=== PATIENT | male | born 1990 | race Two or more races ===

== ENCOUNTER 2023-08-11 13:10 | Emergency (ER) | payer MEDICAID, OTHER ==
[~2023-08-11] VITALS: Ht 170.2 cm; Wt 99.0 kg
[2023-08-11] MEDS ORDERED: SODIUM CHLORIDE 0.9% 1,000 ML IV ONE (13:45)
[2023-08-11] MEDS ORDERED: LORazepam 2MG/ML-1ML VIAL IV ONE (13:45)
[2023-08-11 14:22] VITALS: TEMP 98.8
[2023-08-11 15:21] LABS: Eosinophils # (auto) 0 10 ^3/uL (0-0.8); Eosinophils % (auto) 0.1 % (0.0-7.0); Lymphocytes # (auto) 1.4 10 ^3/uL (0.4-5.4); Mean Corpuscular Hgb Conc. 34.3 g/dL (32.0-36.0); Mean Corpuscular Volume 91.4 fL (80.0-100.0); Monocytes % (auto) 5.5 % (0.0-12.0); Neutrophils # (auto) 15.7 10 ^3/uL (1.6-8.6); Neutrophils % (auto) 85.9 % (37.0-80.0)
[2023-08-11 15:23] LABS: Basophils # (auto) 0.2 10 ^3/uL (0-0.2); Basophils % (auto) 0.9 % (0.0-2.0); Hematocrit 52.9 % (41.0-53.0); Hemoglobin 18.1 g/dL (13.5-17.5); Lymphocytes % (auto) 7.6 % (10.0-50.0); Mean Corpuscular Hemoglobin 31.4 pg (28.0-32.0); Nucleated Red Blood Cells % 0.1 %; Red Blood Cells 5.78 10^6/uL (4.5-5.90); Red Cell Distribution Width 13.7 % (11.8-14.3); White Blood Cell 18.2 10^3/uL (4.4-10.8)
[2023-08-11 15:39] LABS: Alanine Aminotransferase 165 U/L (7-40); Alkaline Phosphatase 83 U/L (46-116); Anion Gap 13 (5-15); Aspartate Aminotransferase 89 U/L (13-40); BUN/Creatinine Ratio 4.9 (10.0-20.0); Blood Alcohol < 3.0 mg/dL (<10); Blood Urea Nitrogen 5 mg/dL (9-23); Calcium 9.7 mg/dL (8.5-10.1); Carbon Dioxide 23 mmol/L (20-30); Chloride 105 mmol/L (98-107); Glucose 117 mg/dL (74-106); Sodium 141 mmol/L (136-145)
[2023-08-11 15:40] LABS: Albumin 5.1 g/dL (3.2-4.8); Bilirubin, Total 2.3 mg/dL (0.2-1.0); Total Protein 8.3 g/dL (5.7-8.2)
[2023-08-11] MEDS ORDERED: ONDANSETRON HCL 4 MG/2 ML VIAL IV ONE (16:45)
[2023-08-11] MEDS ORDERED: CHL10C PO (16:57)
[2023-08-11] MEDS ORDERED: ZOFR4T PO (16:57)
[2023-08-11 17:18] VITALS: BP 137/89; PULSE 115; RESP 17; O2SAT 95
[2023-08-11 18:18] LABS: Amphetamine Screen, Urine Neg (NEGATIVE)
[2023-08-11 18:19] LABS: Barbiturate Scree,Urine Neg (NEGATIVE); Benzodiazephine Screen, Urine Neg (NEGATIVE); Cannabinoid Screen, Urine Pos (NEGATIVE); Cocaine Screen, Urine Neg (NEGATIVE); Opiate Scree,Urine Pos (NEGATIVE); Phencyclidine Screen, Urine Neg (NEGATIVE)
== END 2023-08-11 16:58 | disposition home or self-care (01) ==
LOC: ER 13:10 → EDBD 13:10 → ER 16:58
DX: F10.139 Alcohol abuse with withdrawal, unspecified (principal); D72.829 Elevated white blood cell count, unspecified; F12.10 Cannabis abuse, uncomplicated; Z88.6 Allergy status to analgesic agent; Z79.899 Other long term (current) drug therapy; Y90.8 Blood alcohol level of 240 mg/100 ml or more
CPT/HCPCS: 36415; 80053; 80307; 80320; 85025; 96361; 96374; 96375; 99284; J2060; J2405; J7030; 93005

== ENCOUNTER 2024-09-23 11:41 | Inpatient (IN) | payer MEDICAID ==
[~2024-09-23] VITALS: Ht 170.2 cm; Wt 90.2 kg
[~2024-09-23 11:41] MED LIST: CHL10C PO; ZOFR4T PO
--- NOTE | 2024-09-23 12:21 | ED.PDOC ---
History of Present Illness HPI Comments 34M presents to the ER w/ no prior Hx associated to the c/c of Hematuria/Hematemesis. Pt reports that he has been drinking alcohol for 12 years, mainly vodka and recently stopped on Saturday09/21/24. Pt notes that yesterday morning the symptoms came w/ Hematemesis, Hematuria, Cold shakes, ABD/Chest cramps. Pt notes that it is very uncomfortable to urinate due from the blood. Social Hx of being sober w/ alcohol, but denies tobacco use and substance use. Denies chills, fever, /D, SOB, CP or no other associated symptom's, modifiers, recent injuries or sick contact at this time. Time Seen by MD: 12:00 Primary Care Provider: unknown Reviewed Notes: Nurses Notes, Medications, Allergies Allergies: Coded Allergies: Aspirin (Verified Allergy, Mild, 08/11/23) Uncoded Allergies: PENICILLIN (Allergy, Mild, 08/11/23) Home Meds Active Scripts Ondansetron Odt 4MG Tab (ZOFRAN PO) 4 Mg Tb, 4 MG PO Q8HP PRN for 5 Days, #15 TAB ODT TAB-DISSOLVE IN MOUTH, THEN SWALLOW Prov:DAISHA BROWN MD 08/11/23 Chlordiazepoxide Hcl (Ni-1) (I (Librium) 10 Mg Cap, 10 MG PO BID for 7 Days, #14 CAP Prov:DAISHA BROWN MD 08/11/23 Information Source: Patient Mode of Arrival: Ambulatory Severity: Moderate Timing: Hours Duration: Since onset, Hours Prehospital treatment: None Past Medical History PAST MEDICAL HISTORY: Denies Surgical History: Denies all surgeries Family History Family History: Reviewed,noncontributory to illness, Unknown Social History Smoker: Non-Smoker Alcohol: Heavy, Sober (Sobert since saturday09/21/24) Drugs: Denies Drug Use Lives In: Home Constitutional: denies: chills, diaphoresis, fatigue, fever, malaise, sweats, weakness, others EENTM: denies: blurred vision, double vision, ear bleeding, ear discharge, ear drainage, ear pain, ear ringing, eye pain, eye redness, hearing loss, mouth pain, mouth swelling, nasal discharge, nose bleeding, nose congestion, nose pain, photophobia, tearing, throat pain, throat swelling, voice changes, others Respiratory: denies: cough, hemoptysis, orthopnea, SOB at rest, shortness of breath, SOB with excertion, stridor, wheezing, others Cardiovascular: denies: chest pain, dizzy spells, diaphoresis, Dyspnea on exertion, edema, irregular heart beat, left arm pain, lightheadedness, palpitations, PND, syncope, others Gastrointestinal: reports: abdominal pain; denies: abdomen distended, blood streaked bowels, constipated, diarrhea, dysphagia, difficulty swallowing, hematemesis, melena, nausea, poor appetite, poor fluid intake, rectal bleeding, rectal pain, vomiting, others Genitourinary: reports: hematuria, others (Hematemesis); denies: burning, dysuria, flank pain, frequency, incontinence, penile discharge, penile sore, pain, testicle pain, testicle swelling, urgency Neurological: denies: dizziness, fainting, headache, left sided numbness, left sided weakness, numbness, paresthesia, pre-existing deficit, right sided numbness, right sided weakness, seizure, speech problems, tingling, tremors, weakness, others Musculoskeletal: denies: back pain, gout, joint pain, joint swelling, muscle pain, muscle stiffness, neck pain, others Integumetry: denies: bruises, change in color, change in hair/nails, dryness, laceration, lesions, lumps, rash, wounds, others Allergic/Immunocompromised: denies: Difficulty Healing, Frequent Infections, Hives, Itching, others Hematologic/Lymphatic: denies: anemia, blood clots, easy bleeding, easy bruising, swollen glands, others Endocrine: denies: excessive hunger, excessive sweating, excessive thirst, excessive urination, flushing, intolerance to cold, intolerance to heat, unexplained weight gain, unexplained weight loss, others Psychiatric: denies: anxiety, bipolar disorder, depression, hopeless, panic disorder, schizophrenia, sleepless, suicidal, others All Other Systems: Reviewed and Negative Physical Exam General Appearance: Moderate Distress, Normal HEENT: Normal ENT Inspection, Pharynx Normal, Scleral Icterus (L), Scleral Icterus (R), TMs Normal Neck: Full Range of Motion, Non-Tender, Normal, Normal Inspection Respiratory: Chest Non-Tender, Lungs Clear, No Accessory Muscle Use, No Respiratory Distress, Normal Breath Sounds Cardiovascular: No Edema, No JVD, No Murmur, No Gallop, Normal Peripheral Pulses, Regular Rate/Rhythm Breast Exam: Deferred Gastrointestinal: No Organomegaly, Non Tender, No Pulsatile Mass, Normal Bowel Sounds, Soft Genitalia: Deferred Pelvic: Deferred Rectal: Deferred Extremities: No calf tenderness, Normal capillary refill, Normal inspection, Normal range of motion, Non-tender, No pedal edema Musculoskeletal : Apperance: Normal Neurologic: Alert, chair spring assembler II-XII nml as Tested, No Motor Deficits, Normal Affect, Normal Mood, No Sensory Deficits Cerebellar Function: NOT DONE Reflexes: NOT DONE Skin: Dry, Normal Color, Warm Peripheral Pulses: 3+ Radial (R), 3+ Radial (L) Lymphatic: No Adenopathy Was a procedure done? Was a procedure done?: No Differential Dx Considerations may include: Anemia Electrolyte imbalance X-Ray, Labs, Meds, VS Anemia Electrolyte imbalance Time of 1ST Reevaluation: 12:30 Reevaluation 1ST: Unchanged Patient Education/Counseling: Diagnosis, Treatment, Prognosis Family Education/Counseling: No Family Present Departure 1 Departure Time of Disposition: 12:41 Impression: Primary Impression: Alcohol abuse Additional Impression: Liver disease Disposition: ADMITTED INPATIENT Admit to: Med Surg Condition: Guarded Critical Care Note Critical Care Time?: No Stability Stability form required: No Heart Score Heart Score: Heart Score Response (Comments) Value History N/A 0 EKG N/A 0 Age N/A 0 Risk Factors N/A 0 Troponin N/A 0 Total 0 I personally scribed for GRACE ONEILL MD ([email or web address]) on 09/23/24 at 12:21. Electronically submitted by Josué Mckenzie ([email or web address]). GRACE ONEILL MD Sep 23, 2024 12:21
[2024-09-23 13:30] LABS: Urine Bacteria None Seen /hpf (None Seen)
[2024-09-23 13:51] LABS: Urine Blood 1+ /uL (Negative); Urine Clarity Clear (Clear); Urine Color Dark-Orange (Yellow); Urine Mucus FEW (None Seen); Urine Protein, UAD 3+ (Negative); Urine Specific Gravity 1.037 (1.001-1.035); Urine Squamous Epithelial Cell FEW /hpf (<5); Urine Urobilinogen 12 mg/dL (Negative); Urine WBC 2 /HPF (0-3); Urine pH 6.5 (5.0-9.0)
[2024-09-23] MEDS: SODIUM CHLORIDE 0.9% 1,000 ML IV ONE ×2 (14:13→15:15)
[2024-09-23] MEDS: THIAMINE 100mg/ml INJ (200mg/2ml VIAL) IV ONE (14:16)
--- NOTE | 2024-09-23 14:17 | DVH ---
CT ABDOMEN AND PELVIS WITHOUT CONTRAST CLINICAL HISTORY: diffusepain TECHNIQUE: Multiple contiguous axial images of the abdomen and pelvis without intravenous contrast. T he images were reformatted degenerate coronal and sagittal reconstructions. All CT scans at this medical facility are performed using dose modulation techniques as appropriate t o a performed exam including the following:Automated exposure control was utilized; adjustment of the MA and/or KV according to patient size; and use of iterative reconstruction technique. Radiation Dose Information: CT Dose: CTDI volume is 16 mGy. Dose-length product is 996 mGy*cm Comparison: None FINDINGS: Evaluation of the abdomen and pelvis is limited without intravenous contrast. Liver is prominent in size with diffuse hepatic steatosis. The gallbladder, pancreas, kidneys, adr enal glands, and spleen appear within normal limits. There is no gross evidence of abdominal lymphadenopathy. There is no free fluid or free air. The stomach grossly appears unremarkable. The small and large bowel loops demonstrate normal caliber . There are scattered diverticula in the distal colon without evidence of acute diverticulitis. Norm al-appearing appendix is seen in the right lower quadrant abdomen. The abdominal aorta and IVC appear within normal limits. Bladder is decompressed limiting evaluation. Pelvic organ appears within normal limits. There is no gross evidence of a pelvic mass. There is no free fluid collection. There is a small fat containing l eft inguinal hernia. Lung bases are clear. There is no acute osseous abnormality. IMPRESSION: 1. There is no acute process in the abdomen and pelvis. 2. Hepatomegaly with diffuse hepatic steatosis. HS:Y
[2024-09-23] MEDS: LORazepam 2MG/ML-1ML VIAL IV ONE (15:38)
[2024-09-23 19:10] LABS: Basophils # (auto) 0.1 10 ^3/uL (0-0.2); Basophils % (auto) 0.9 % (0.0-2.0); Eosinophils # (auto) 0 10 ^3/uL (0-0.8); Eosinophils % (auto) 0.1 % (0.0-7.0); Hematocrit 49.3 % (41.0-53.0); Hemoglobin 16.7 g/dL (13.5-17.5); Lymphocytes % (auto) 17.7 % (10.0-50.0); Mean Corpuscular Hemoglobin 32.3 pg (28.0-32.0); Mean Corpuscular Hgb Conc. 33.8 g/dL (32.0-36.0); Mean Corpuscular Volume 95.4 fL (80.0-100.0); Monocytes # (auto) 0.9 10 ^3/uL (0-1.3); Neutrophils # (auto) 8.4 10 ^3/uL (1.6-8.6); Neutrophils % (auto) 73.3 % (37.0-80.0); Nucleated Red Blood Cells % 0.1 %; Platelet Count (auto) 189 10^3/uL (140-450); Red Blood Cells 5.16 10^6/uL (4.5-5.90); Red Cell Distribution Width 14.4 % (11.8-14.3); White Blood Cell 11.4 10^3/uL (4.4-10.8)
[2024-09-23 19:23] LABS: Alkaline Phosphatase 92 U/L (46-116); Anion Gap 16 (5-15); BUN/Creatinine Ratio 10.9 (10.0-20.0); Blood Urea Nitrogen 11 mg/dL (9-23); Calcium 9.9 mg/dL (8.7-10.4); Carbon Dioxide 25 mmol/L (20-31); Glucose 80 mg/dL (74-106); Potassium 3.7 mmol/L (3.5-5.1); Sodium 138 mmol/L (136-145)
[2024-09-23 19:27] LABS: Alanine Aminotransferase 127 U/L (7-40); Albumin 5.2 g/dL (3.2-4.8); Aspartate Aminotransferase 132 U/L (13-40); Bilirubin, Total 7.2 mg/dL (0.2-1.0); Chloride 97 mmol/L (98-107); Total Protein 8.4 g/dL (5.7-8.2)
[2024-09-23 19:34] LABS: INR 1.34 (0.9-1.15); Partial Thromboplastin Time 28.4 SEC (24.5-34.5); Prothrombin Time 13.8 sec (9.3-11.8)
[2024-09-23 21:00] VITALS: BP 127/91; PULSE 94; RESP 18; TEMP 99.5; O2SAT 96
[2024-09-23] MEDS: PANTOPRAZOLE 40 MG/10 ML VIAL INJ IV ONE (21:45)
[2024-09-23] MEDS: chlordiazePOXIDE HCL 25 MG CAP PO SCH (21:45)
--- NOTE | 2024-09-23 21:47 | DVHHP2 ---
History of Present Illness Reason for Visit: Nausea and vomiting History of Present Illness 34-year-old male with a history of liver cirrhosis presents with a chief complaint of nausea and vomiting. Patient reports stopping alcoholic drinks three days ago. He states for the past two days having nausea and vomiting. He reports also noticing blood-tinged emesis. Denies melena. Reports palpitations and chest pain occasionally. Other acute complaints reported. Past Medical History Liver cirrhosis Past Surgical History Denies Family History Noncontributory Smoke: No ALCOHOL: none Drugs: None Lives: with Family Review of Systems Review of Systems Review of systems are currently negative otherwise addressed in HPI. Allergies: Coded Allergies: Aspirin (Verified Allergy, Mild, 08/11/23) Uncoded Allergies: PENICILLIN (Allergy, Mild, 08/11/23) Medications Current Medications Medications Dose Ordered Sig/Naveen Route Start Time Stop Time Status Last Admin Dose Admin Pantoprazole Sodium 40 mg DAILY IV 09/24/24 10:00 Chlordiazepoxide HCl 50 mg Q8H PO 09/23/24 20:45 09/24/24 12:46 Chlordiazepoxide HCl 50 mg Q12HR PO 09/24/24 10:00 09/24/24 22:01 Chlordiazepoxide HCl 25 mg Q12HR PO 09/25/24 10:00 09/25/24 22:01 Chlordiazepoxide HCl 25 mg QAM PO 09/26/24 07:00 09/26/24 07:01 Folic Acid 1 mg/ Magnesium Sulfate 8 meq/ Multivitamins 10 ml/Thiamine HCl 100 mg/Sodium Chloride 1,013.2 ml @ 126.247 mls/hr DAILY@1800 INJ 09/24/24 18:00 Temazepam 15 mg QHSP PRN PO 09/23/24 20:45 Ondansetron HCl 4 mg Q4HP PRN IV 09/23/24 20:45 Propranolol HCl 20 mg BID PO 09/23/24 22:00 Exam Vital Signs Vital Signs Date Time Temp Pulse Resp B/P (MAP) Pulse Ox O2 Delivery O2 Flow Rate FiO2 09/23/24 14:22 97.1 106 15 153/77 (102) 95 97.1 Exam Gen: 34-year-old male in mild distress Skin: Warm, dry, normal color and texture, no rash. HEENT: Normocephalic atraumatic, mucous membranes moist and pink, scleral icterus. Neck: Cervical and supraclavicular nodes normal without enlargement, trachea is midline, thyroid gland is normal without masses. Pulmonary: Clear to auscultation and percussion bilaterally. Cardiac: Regular rate and rhythm. No murmur Abdomen: Soft, nontender, nondistended, bowel sounds present all 4 quadrants, no guarding, no rigidity, no organomegaly. Extremities: No cyanosis, clubbing, no edema Neuro: Cranial nerves II through XII grossly intact, normal affect and speech, no focal motor deficits. Labs/Xrays ORDERING PHYSICIAN: GRACE ONEILL MD PROCEDURE(s): ABPL - CT AB PEL WO CON-NO ORAL OR IV REASON: diffusepain ORDER NUMBER(s): [id number], ACCESSION NUMBER(s): [id number] CT ABDOMEN AND PELVIS WITHOUT CONTRAST CLINICAL HISTORY: diffusepain TECHNIQUE: Multiple contiguous axial images of the abdomen and pelvis without intravenous contrast. The images were reformatted degenerate coronal and sagittal reconstructions. All CT scans at this medical facility are performed using dose modulation techniques as appropriate to a performed exam including the following:Automated exposure control was utilized; adjustment of the MA and/or KV according to patient size; and use of iterative reconstruction technique. Radiation Dose Information: CT Dose: CTDI volume is 16 mGy. Dose-length product is 996 mGy*cm Comparison: None FINDINGS: Evaluation of the abdomen and pelvis is limited without intravenous contrast. Liver is prominent in size with diffuse hepatic steatosis. The gallbladder, pancreas, kidneys, adrenal glands, and spleen appear within normal limits. There is no gross evidence of abdominal lymphadenopathy. There is no free fluid or free air. The stomach grossly appears unremarkable. The small and large bowel loops demonstrate normal caliber. There are scattered diverticula in the distal colon without evidence of acute diverticulitis. Normal-appearing appendix is seen in the right lower quadrant abdomen. The abdominal aorta and IVC appear within normal limits. Bladder is decompressed limiting evaluation. Pelvic organ appears within normal limits. There is no gross evidence of a pelvic mass. There is no free fluid collection. There is a small fat containing left inguinal hernia. Lung bases are clear. There is no acute osseous abnormality. IMPRESSION: 1. There is no acute process in the abdomen and pelvis. 2. Hepatomegaly with diffuse hepatic steatosis. HS:Y Labs Test 09/23/24 21:03 09/23/24 18:55 09/23/24 13:00 Range/Units White Blood Count 11.4 H 4.4-10.8 10^3/uL Red Blood Count 5.16 4.5-5.90 10^6/uL Hemoglobin 16.7 13.5-17.5 g/dL Hematocrit 49.3 41.0-53.0 % Mean Corpuscular Volume 95.4 80.0-100.0 fL Mean Corpuscular Hemoglobin 32.3 H 28.0-32.0 pg Mean Corpuscular Hemoglobin Concent 33.8 32.0-36.0 g/dL Red Cell Distribution Width 14.4 H 11.8-14.3 % Platelet Count 189 140-450 10^3/uL Mean Platelet Volume 8.1 6.9-10.8 fL Neutrophils (%) (Auto) 73.3 37.0-80.0 % Lymphocytes (%) (Auto) 17.7 10.0-50.0 % Monocytes (%) (Auto) 8.0 0.0-12.0 % Eosinophils (%) (Auto) 0.1 0.0-7.0 % Basophils (%) (Auto) 0.9 0.0-2.0 % Neutrophils # (Auto) 8.4 1.6-8.6 10 ^3/uL Lymphocytes # (Auto) 2.0 0.4-5.4 10 ^3/uL Monocytes # (Auto) 0.9 0-1.3 10 ^3/uL Eosinophils # (Auto) 0 0-0.8 10 ^3/uL Basophils # (Auto) 0.1 0-0.2 10 ^3/uL Nucleated Red Blood Cells 0.1 % Prothrombin Time 13.8 H 9.3-11.8 sec Prothrombin Time INR 1.34 H 0.9-1.15 Activated Partial Thromboplast Time 28.4 24.5-34.5 SEC Sodium Level 138 136-145 mmol/L Potassium Level 3.7 3.5-5.1 mmol/L Chloride Level 97 L 98-107 mmol/L Carbon Dioxide Level 25 20-31 mmol/L Anion Gap 16 H 5-15 Blood Urea Nitrogen 11 9-23 mg/dL Creatinine 1.01 0.700-1.30 mg/dL Glomerular Filtration Rate Calc 101 >90 mL/min BUN/Creatinine Ratio 10.9 10.0-20.0 Serum Glucose 80 74-106 mg/dL Calcium Level 9.9 8.7-10.4 mg/dL Total Bilirubin 7.2 H 0.2-1.0 mg/dL Aspartate Amino Transferase (AST) 132 H 13-40 U/L Alanine Aminotransferase (ALT) 127 H 7-40 U/L Alkaline Phosphatase 92 46-116 U/L Total Protein 8.4 H 5.7-8.2 g/dL Albumin 5.2 H 3.2-4.8 g/dL Urine Color Dark-orange Yellow Urine Clarity Clear Clear Urine pH 6.5 5.0-9.0 Urine Specific [place] 1.037 H 1.001-1.035 Urine Protein 3+ H Negative Urine Ketones 4+ H Negative Urine Blood 1+ H Negative /uL Urine Nitrite Negative Negative Urine Bilirubin 2+ Negative Urine Urobilinogen 12 H Negative mg/dL Urine Leukocyte Esterase Negative Negative /uL Urine RBC 5 0 - 3 /hpf Urine Microscopic WBC 2 0-3 /HPF Urine Squamous Epithelial Cells Few <5 /hpf Urine Bacteria None seen None Seen /hpf Urine Mucus Few None Seen Urine Glucose Trace Normal mg/dL Lipase 71 H 12-53 U/L Plasma/Serum Blood Alcohol < 3.0 <10 mg/dL Assessment/Plan Assessment/Plan Assessment Alcohol withdrawal Liver cirrhosis Transaminitis Coagulopathy ? GI bleed Plan Admit the patient to [facility] to the hospitalist GI consult Librium taper Clear liquid diet Continue treatment per orders. Plan discussed with: Patient My Orders Orders - DANIKA BOUCHER AGACNP Procedure Category Date Status Time Admit ADMIT 09/23/24 Transmitted 18:48 Ammonia LAB 09/23/24 In Process 20:37 Pantoprazole PHA 09/24/24 In Process (Protonix) 10:00 Chlordiazepoxide Hcl PHA 09/23/24 In Process Capsule (Librium Ca 20:45 Chlordiazepoxide Hcl PHA 09/24/24 In Process Capsule (Librium Ca 10:00 Chlordiazepoxide Hcl PHA 09/25/24 In Process Capsule (Librium Ca 10:00 Chlordiazepoxide Hcl PHA 09/26/24 In Process Capsule (Librium Ca 07:00 Folic Acid... PHA 09/24/24 In Process 18:00 Stool Occult Blood LAB 09/23/24 Logged 20:37 Gastric Occult Blood LAB 09/23/24 Logged 20:37 Temazepam (Restoril) PHA 09/23/24 In Process 20:45 Ondansetron Hcl PHA 09/23/24 In Process (Zofran) 20:45 Complete Blood Count LAB 09/24/24 Verified 04:00 Comprehensive LAB 09/24/24 Verified Metabolic Panel 04:00 Condition: Stable LATA 09/23/24 In Process 20:37 Clear Liq Diet DIET 09/24/24 Transmitted Breakfast Bedrest With Bathroom LATA 09/23/24 In Process Privileg 20:37 Type And Screen BBK 09/23/24 In Process 20:37 * [facility] Guest Service Agent CONS 09/23/24 Transmitted 20:47 Propranolol Hcl PHA 09/23/24 In Process Tablet (Inderal 22:00 Date of Service: Sep 23, 2024 Billing Provider: DANIKA BOUCHER Common Visit Codes: [id number] INP/OBS CARE (HIGH) DANIKA BOUCHER Sep 23, 2024 21:47
[2024-09-23] MEDS: ONDANSETRON HCL 4 MG/2 ML VIAL IV PRN (21:50)
[2024-09-23] MEDS: PROPRANOLOL HCL 20 MG TAB PO SCH (22:47)
[2024-09-23] MEDS: TEMAZEPAM 15 MG CAP PO PRN (23:10)
[2024-09-24] VITALS (8 sets, daily range): BP systolic 112–130; BP diastolic 83–95; PULSE 75–85; RESP 16–20; TEMP 97.8–98.8; O2SAT 96–98
[2024-09-24 05:23] LABS: Basophils # (auto) 0.1 10 ^3/uL (0-0.2); Basophils % (auto) 0.6 % (0.0-2.0); Eosinophils # (auto) 0.1 10 ^3/uL (0-0.8); Eosinophils % (auto) 0.9 % (0.0-7.0); Hematocrit 47.5 % (41.0-53.0); Hemoglobin 15.9 g/dL (13.5-17.5); Lymphocytes % (auto) 24.1 % (10.0-50.0); Mean Corpuscular Hgb Conc. 33.5 g/dL (32.0-36.0); Mean Corpuscular Volume 95.6 fL (80.0-100.0); Monocytes # (auto) 0.6 10 ^3/uL (0-1.3); Monocytes % (auto) 7.5 % (0.0-12.0); Neutrophils # (auto) 5.5 10 ^3/uL (1.6-8.6); Neutrophils % (auto) 66.9 % (37.0-80.0); Platelet Count (auto) 151 10^3/uL (140-450); Red Blood Cells 4.96 10^6/uL (4.5-5.90); Red Cell Distribution Width 14.1 % (11.8-14.3); White Blood Cell 8.3 10^3/uL (4.4-10.8)
[2024-09-24 05:42] LABS: Albumin 4.7 g/dL (3.2-4.8); Alkaline Phosphatase 80 U/L (46-116); Anion Gap 13 (5-15); BUN/Creatinine Ratio 9.7 (10.0-20.0); Calcium 9.7 mg/dL (8.7-10.4); Carbon Dioxide 26 mmol/L (20-31); Chloride 98 mmol/L (98-107); Glucose 79 mg/dL (74-106); Sodium 137 mmol/L (136-145); Total Protein 7.7 g/dL (5.7-8.2)
[2024-09-24 05:44] LABS: Alanine Aminotransferase 105 U/L (7-40); Aspartate Aminotransferase 116 U/L (13-40); Blood Urea Nitrogen 9 mg/dL (9-23); Potassium 3.4 mmol/L (3.5-5.1)
[2024-09-24] MEDS: chlordiazePOXIDE HCL 25 MG CAP PO SCH (08:31)
[2024-09-24] MEDS: PANTOPRAZOLE 40 MG/10 ML VIAL INJ IV SCH (08:31)
--- NOTE | 2024-09-24 12:25 | DVHPN2 ---
Reviewed: Care Plan, H&P, Labs, Medications, Previous Orders, Radiology Changes from previous H/P or p: No Changes Objective Vitals Vital Signs Date Time Temp Pulse Resp B/P (MAP) Pulse Ox O2 Delivery O2 Flow Rate FiO2 09/24/24 09:00 98.2 84 16 127/90 (102) 96 98.2 09/24/24 08:00 Room Air* 0 21 Intake/Output Intake and Output 09/24/24 07:00 Intake Total 800 ml Output Total 500 ml Balance 300 ml Intake Oral 800 ml Output Urine Total 500 ml Medications Current Medications Medications Dose Ordered Sig/Naveen Route Start Time Stop Time Status Last Admin Dose Admin Pantoprazole Sodium 40 mg DAILY IV 09/24/24 10:00 09/24/24 08:31 40 MG Chlordiazepoxide HCl 50 mg Q8H PO 09/23/24 20:45 09/24/24 12:46 09/24/24 04:56 50 MG Chlordiazepoxide HCl 50 mg Q12HR PO 09/24/24 10:00 09/24/24 22:01 09/24/24 08:31 50 MG Chlordiazepoxide HCl 25 mg Q12HR PO 09/25/24 10:00 09/25/24 22:01 Chlordiazepoxide HCl 25 mg QAM PO 09/26/24 07:00 09/26/24 07:01 Folic Acid 1 mg/ Magnesium Sulfate 8 meq/ Multivitamins 10 ml/Thiamine HCl 100 mg/Sodium Chloride 1,013.2 ml @ 126.247 mls/hr DAILY@1800 INJ 09/24/24 18:00 Temazepam 15 mg QHSP PRN PO 09/23/24 20:45 09/23/24 23:10 15 MG Ondansetron HCl 4 mg Q4HP PRN IV 09/23/24 20:45 09/24/24 04:43 4 MG Propranolol HCl 20 mg BID PO 09/23/24 22:00 09/24/24 08:56 20 MG Laboratory Results Laboratory Tests 09/24/24 04:44 Chemistry Test 09/23/24 18:55 09/24/24 04:44 Albumin 5.2 g/dL (3.2-4.8) H 4.7 g/dL (3.2-4.8) Calcium Level 9.9 mg/dL (8.7-10.4) 9.7 mg/dL (8.7-10.4) Total Protein 8.4 g/dL (5.7-8.2) H 7.7 g/dL (5.7-8.2) Coagulation Test 09/23/24 18:55 Prothrombin Time 13.8 sec (9.3-11.8) H Prothrombin Time INR 1.34 (0.9-1.15) H Activated Partial Thromboplast Time 28.4 SEC (24.5-34.5) Lipid panel Test 09/23/24 13:00 Lipase 71 U/L (12-53) H LFT Test 09/23/24 18:55 09/24/24 04:44 Alanine Aminotransferase (ALT) 127 U/L (7-40) H 105 U/L (7-40) H Alkaline Phosphatase 92 U/L (46-116) 80 U/L (46-116) Aspartate Amino Transferase (AST) 132 U/L (13-40) H 116 U/L (13-40) H Total Bilirubin 7.2 mg/dL (0.2-1.0) H 7.0 mg/dL (0.2-1.0) H Urinalysis Test 09/23/24 13:00 Urine Color Dark-orange (Yellow) Urine Clarity Clear (Clear) Urine pH 6.5 (5.0-9.0) Urine Specific [place] 1.037 (1.001-1.035) Urine Protein 3+ (Negative) H Urine Ketones 4+ (Negative) H Urine Blood 1+ /uL (Negative) H Urine Nitrite Negative (Negative) Urine Bilirubin 2+ (Negative) Urine Urobilinogen 12 mg/dL (Negative) H Urine Leukocyte Esterase Negative /uL (Negative) Urine RBC 5 /hpf (0 - 3) Urine Microscopic WBC 2 /HPF (0-3) Urine Squamous Epithelial Cells Few /hpf (<5) Urine Bacteria None seen /hpf (None Seen) Urine Mucus Few (None Seen) Urine Glucose Trace mg/dL (Normal) Labs and/or images reviewed: Labs reviewed by me, Image(s) reviewed by me Assessment/Plan Assessment/Plan Acute abdominal pain with nausea and vomiting Acute pancreatitis lipase 71 Cirrhosis of liver Chronic current alcohol abuse and withdrawal: Banana bag Librium Acute dehydration: IV fluids Stool for occult blood positive Patient is thinking of leaving AMA Plan discussed with: Patient Date of Service: Sep 24, 2024 Billing Provider: DARSHAN PAIZ MD Common Visit Codes: [id number] INP/OBS CARE(HIGH) DARSHAN PAIZ MD Sep 24, 2024 12:25
[2024-09-24] MEDS: POTASSIUM CHL 20 Meq TABLET PO ONE (12:45)
[2024-09-24] MEDS: SODIUM CHLORIDE 0.9% 1,000 ML IV SCH (12:46)
--- NOTE | 2024-09-24 13:11 | DVHINCON2 ---
GI Consult Consult Note GI consult note Date of Consultation: 09/24/2024 Chief Complaint: GI bleed Referring Physician: Marito GROSS H&P: 34-year-old presented to ER with complains of nausea and vomiting. Patient admits to having blood-tinged emesis Patient also admits to black stool. No red blood in stool Patient admits to heavy alcohol use, but she has stopped three days ago No EGD in past. No blood thinners Past Medical History: Liver Past Surgical History: Denies Social History: NO smoking, heavy drinking ETOH Family History: Noncontributory Review of Systems: Constitutional: no fever, chill, weight loss HEENT: no eye pain, no hearing loss, no oral lesion, no scleral icterus Heart: no chest pain, no chest pressure Lung: no cough, no dyspnea with exertion Abdomen: see HPI Physical exam: General: NAD, AAOX3 Chest: lung cota clear to auscultation Heart: RRR, no murmur Abdomen: non-distended, no tenderness to palpation, +BS Labs: Labs Test 09/24/24 09:10 09/24/24 04:44 09/23/24 21:03 09/23/24 18:55 Range/Units Stool Occult Blood Positive Negative Stool Occult Blood Sample #3 Negative White Blood Count 8.3 # 4.4-10.8 10^3/uL Red Blood Count 4.96 4.5-5.90 10^6/uL Hemoglobin 15.9 13.5-17.5 g/dL Hematocrit 47.5 41.0-53.0 % Mean Corpuscular Volume 95.6 80.0-100.0 fL Mean Corpuscular Hemoglobin 32.0 28.0-32.0 pg Mean Corpuscular Hemoglobin Concent 33.5 32.0-36.0 g/dL Red Cell Distribution Width 14.1 11.8-14.3 % Platelet Count 151 140-450 10^3/uL Mean Platelet Volume 8.4 6.9-10.8 fL Neutrophils (%) (Auto) 66.9 37.0-80.0 % Lymphocytes (%) (Auto) 24.1 10.0-50.0 % Monocytes (%) (Auto) 7.5 0.0-12.0 % Eosinophils (%) (Auto) 0.9 0.0-7.0 % Basophils (%) (Auto) 0.6 0.0-2.0 % Neutrophils # (Auto) 5.5 1.6-8.6 10 ^3/uL Lymphocytes # (Auto) 2.0 0.4-5.4 10 ^3/uL Monocytes # (Auto) 0.6 0-1.3 10 ^3/uL Eosinophils # (Auto) 0.1 0-0.8 10 ^3/uL Basophils # (Auto) 0.1 0-0.2 10 ^3/uL Nucleated Red Blood Cells 0.0 % Sodium Level 137 136-145 mmol/L Potassium Level 3.4 L 3.5-5.1 mmol/L Chloride Level 98 98-107 mmol/L Carbon Dioxide Level 26 20-31 mmol/L Anion Gap 13 5-15 Blood Urea Nitrogen 9 9-23 mg/dL Creatinine 0.93 0.700-1.30 mg/dL Glomerular Filtration Rate Calc 111 >90 mL/min BUN/Creatinine Ratio 9.7 L 10.0-20.0 Serum Glucose 79 74-106 mg/dL Calcium Level 9.7 8.7-10.4 mg/dL Total Bilirubin 7.0 H 0.2-1.0 mg/dL Aspartate Amino Transferase (AST) 116 H 13-40 U/L Alanine Aminotransferase (ALT) 105 H 7-40 U/L Alkaline Phosphatase 80 46-116 U/L Total Protein 7.7 5.7-8.2 g/dL Albumin 4.7 3.2-4.8 g/dL Ammonia 22 11-32 umol/L Prothrombin Time 13.8 H 9.3-11.8 sec Prothrombin Time INR 1.34 H 0.9-1.15 Activated Partial Thromboplast Time 28.4 24.5-34.5 SEC Test 09/23/24 13:00 Range/Units Urine Color Dark-orange Yellow Urine Clarity Clear Clear Urine pH 6.5 5.0-9.0 Urine Specific [place] 1.037 H 1.001-1.035 Urine Protein 3+ H Negative Urine Ketones 4+ H Negative Urine Blood 1+ H Negative /uL Urine Nitrite Negative Negative Urine Bilirubin 2+ Negative Urine Urobilinogen 12 H Negative mg/dL Urine Leukocyte Esterase Negative Negative /uL Urine RBC 5 0 - 3 /hpf Urine Microscopic WBC 2 0-3 /HPF Urine Squamous Epithelial Cells Few <5 /hpf Urine Bacteria None seen None Seen /hpf Urine Mucus Few None Seen Urine Glucose Trace Normal mg/dL Lipase 71 H 12-53 U/L Plasma/Serum Blood Alcohol < 3.0 <10 mg/dL Imaging: CT abdomen pelvis IMPRESSION: 1. There is no acute process in the abdomen and pelvis. 2. Hepatomegaly with diffuse hepatic steatosis. Assessment: GI bleed Pancreatitis Hepatomegaly Heavy alcohol use Plan: Discussed with Dr. Long - Pt will be scheduled for an EGD tomorrow 09/25/2024. Pt was informed of the risks (bleeding, infection, perforation, reaction to sedation medications and cardiopulmonary arrest) and benefit and is agreeable to undergo the procedures. Protonix and Zofran Monitor lab DC alcohol discussed extensively Plan discussed with patient, RN and hospitalist Thank you for this consult Date of Service: Sep 24, 2024 Billing Provider: FAZAL PAIZ Common Visit Codes: CONSULT ONLY Consultation Codes: [id number] CONSULT <60MIN FAZAL PAIZ Sep 24, 2024 13:11
--- NOTE | 2024-09-24 13:12 | DVH ---
CHEST RADIOGRAPH Indication: Pain Technique: Single frontal view of the chest was obtained COMPARISON: None FINDINGS: Lines and Tubes: None Lungs: Clear Pleura: No effusion. No pneumothorax. Cardiomediastinal contours: Unremarkable Bones: Unremarkable IMPRESSION: No acute disease.
[2024-09-24] MEDS: FOLIC ACID 1 MG, MAGNESIUM SULF SDV 50% 8 MEQ, MULTIPLE VITAMIN 10 ML, THIAMINE INJ 100... INJ SCH (17:42)
[2024-09-25] VITALS (8 sets, daily range): BP systolic 95–126; BP diastolic 61–91; PULSE 74–94; RESP 15–18; TEMP 97.7–98.6; O2SAT 95–98
[2024-09-25 05:15] LABS: INR 1.33 (0.9-1.15); Partial Thromboplastin Time 27.6 SEC (24.5-34.5); Prothrombin Time 13.7 sec (9.3-11.8)
[2024-09-25] MEDS: chlordiazePOXIDE HCL 25 MG CAP PO SCH (09:25)
--- NOTE | 2024-09-25 11:02 | DVHPN2 ---
Reviewed: Care Plan, H&P, Labs, Medications, Previous Orders, Radiology Changes from previous H/P or p: No Changes Objective Vitals Vital Signs Date Time Temp Pulse Resp B/P (MAP) Pulse Ox O2 Delivery O2 Flow Rate FiO2 09/25/24 09:26 80 117/91 09/25/24 08:46 97.7 18 95 97.7 09/25/24 08:16 Room Air* 0 21 Intake/Output Intake and Output 09/25/24 07:00 Intake Total 2096.247 ml Output Total 0 ml Balance 2096.247 ml Intake Oral 1520 ml IV Total 576.247 ml Stool Total 0 ml # Voids 10 # Bowel Movements 1 Medications Current Medications Medications Dose Ordered Sig/Naveen Route Start Time Stop Time Status Last Admin Dose Admin Pantoprazole Sodium 40 mg DAILY IV 09/24/24 10:00 09/25/24 09:25 40 MG Chlordiazepoxide HCl 25 mg Q12HR PO 09/25/24 10:00 09/25/24 22:01 09/25/24 09:25 25 MG Chlordiazepoxide HCl 25 mg QAM PO 09/26/24 07:00 09/26/24 07:01 Folic Acid 1 mg/ Magnesium Sulfate 8 meq/ Multivitamins 10 ml/Thiamine HCl 100 mg/Sodium Chloride 1,013.2 ml @ 126.247 mls/hr DAILY@1800 INJ 09/24/24 18:00 09/24/24 17:42 126.247 MLS/HR Temazepam 15 mg QHSP PRN PO 09/23/24 20:45 09/24/24 21:14 15 MG Ondansetron HCl 4 mg Q4HP PRN IV 09/23/24 20:45 09/24/24 04:43 4 MG Propranolol HCl 20 mg BID PO 09/23/24 22:00 09/25/24 09:26 20 MG Sodium Chloride 1,000 ml @ 150 mls/hr Q6H40M IV 09/24/24 12:45 09/25/24 09:03 150 MLS/HR Laboratory Results Laboratory Tests 09/24/24 04:44 Coagulation Test 09/25/24 04:36 Prothrombin Time 13.7 sec (9.3-11.8) H Prothrombin Time INR 1.33 (0.9-1.15) H Activated Partial Thromboplast Time 27.6 SEC (24.5-34.5) Lipid panel Test 09/25/24 04:36 Lipase 94 U/L (12-53) H Urinalysis Test 09/23/24 13:00 Urine Color Dark-orange (Yellow) Urine Clarity Clear (Clear) Urine pH 6.5 (5.0-9.0) Urine Specific [place] 1.037 (1.001-1.035) Urine Protein 3+ (Negative) H Urine Ketones 4+ (Negative) H Urine Blood 1+ /uL (Negative) H Urine Nitrite Negative (Negative) Urine Bilirubin 2+ (Negative) Urine Urobilinogen 12 mg/dL (Negative) H Urine Leukocyte Esterase Negative /uL (Negative) Urine RBC 5 /hpf (0 - 3) Urine Microscopic WBC 2 /HPF (0-3) Urine Squamous Epithelial Cells Few /hpf (<5) Urine Bacteria None seen /hpf (None Seen) Urine Mucus Few (None Seen) Urine Glucose Trace mg/dL (Normal) Labs and/or images reviewed: Labs reviewed by me, Image(s) reviewed by me Assessment/Plan Assessment/Plan Acute abdominal pain with nausea and vomiting Acute pancreatitis lipase 71, now 91 Cirrhosis of liver Chronic current alcohol abuse and withdrawal: Banana bag Librium Acute dehydration: IV fluids Stool for occult blood positive patient getting EGD today Plan discussed with: Patient My Orders Orders - DARSHAN PAIZ MD Procedure Category Date Status Time Sodium Chloride 0.9% PHA 09/24/24 In Process 12:45 Chest Xray 1 View XY 09/24/24 Resulted 12:37 Date of Service: Sep 25, 2024 Billing Provider: DARSHAN PAIZ MD Common Visit Codes: [id number] INP/OBS CARE(HIGH) DARSHAN PAIZ MD Sep 25, 2024 11:01
[2024-09-25] MEDS ORDERED: MIDAZOLAM HCL 2MG/2ML 2ml VIAL (1mg/ml) ONE (12:09)
[2024-09-25] MEDS ORDERED: fentaNYL CITRATE 100 MCG/2 ML VL ONE (12:09)
[2024-09-25] MEDS ORDERED: LIDOCAINE VISCOUS 2% 15ML UD ONE (12:15)
[2024-09-25] MEDS ORDERED: KETAMINE 50mg/ML 1ml syringe ONE (12:23)
[2024-09-25] MEDS ORDERED: DexAMETHasone SOD PHOS 10MG/1ML VIAL INJ ONE (12:23)
[2024-09-25] MEDS ORDERED: PROPOFOL 10 MG/ML 20 ML IV ONE (12:23)
--- NOTE | 2024-09-25 15:43 | DVHOP2 ---
Operative Report DATE OF OPERATION: 09/25/24 PROCEDURE: Upper Endoscopy with biopsy. PREOPERATIVE INDICATION: The patient is a 34 -year-old male undergoing endoscopy for upper GI bleed POSTOPERATIVE DIAGNOSES: 1. Mild gastroduodenitis 2. 0.5 cm sliding-type hiatal hernia with minimal grade a erosive esophagitis 3. Otherwise normal examination up to the 2nd and 3rd part of the duodenal with no esophageal varices and no fresh or old blood in the upper GI tract PROCEDURE PERFORMED BY: Jimmy Long GI NURSE: Denia SCOPE: Olympus videoendoscope. ASA CLASS: 2. PREOPERATIVE MEDICATIONS: Mac sedation Dr. Bell PROCEDURE IN DETAIL: After obtaining an informed consent, the patient was placed on left lateral decubitus position. The patient was then sedated with the above medications. A bite block was placed between his teeth. The endoscope was then passed through the oropharynx, into the esophagus, and through the stomach and pylorus up to the second and third part of the duodenum. The endoscope was t hen withdrawn. The 2nd and 3rd part of the duodenum were normal and the duodenal bulb showed mild duodenitis. The pre-pyloric area and antrum and body showed mild gastritis. Duodenal and gastric biopsies were obtained On retroflexion the fundus cardia and angularis were normal. The endoscope was then withdrawn into the distal esophagus Patient had a 0.5 cm sliding-type hiatal hernia with slightly irregular squamocolumnar junction minimal grade a erosive esophagitis GE junction biopsies were obtained. The remaining distal and proximal esophagus and oropharynx were unremarkable. There was no varices The patient tolerated the procedure well without difficulty. COMPLICATIONS : None SPECIMENS: Duodenal biopsies Gastric biopsies DISPOSITION: Stable Return to floor PLAN: 1. Await for biopsy result 2. Will place pt on Protonix 40 mg p.o. daily 3. Carafate 1 g p.o. twice a day 4. DC aspirin NSAIDs smoking alcohol 5. Outpatient follow up with me in 4-6 weeks to review results and discuss further management JIMMY LONG MD Sep 25, 2024 15:43
[2024-09-26 01:00] VITALS: BP 113/84; PULSE 80; RESP 18; TEMP 97.5; O2SAT 96
[2024-09-26 05:00] VITALS: BP 102/69; PULSE 75; RESP 18; TEMP 97.4; O2SAT 96
[2024-09-26] MEDS: chlordiazePOXIDE HCL 25 MG CAP PO SCH (06:10)
[2024-09-26 07:01] LABS: Basophils # (auto) 0 10 ^3/uL (0-0.2); Basophils % (auto) 0.1 % (0.0-2.0); Eosinophils # (auto) 0 10 ^3/uL (0-0.8); Hematocrit 45.1 % (41.0-53.0); Hemoglobin 15.4 g/dL (13.5-17.5); Lymphocytes # (auto) 0.8 10 ^3/uL (0.4-5.4); Lymphocytes % (auto) 8.3 % (10.0-50.0); Mean Corpuscular Hemoglobin 32.8 pg (28.0-32.0); Mean Corpuscular Volume 96.3 fL (80.0-100.0); Monocytes # (auto) 0.3 10 ^3/uL (0-1.3); Monocytes % (auto) 3.2 % (0.0-12.0); Neutrophils # (auto) 8.7 10 ^3/uL (1.6-8.6); Neutrophils % (auto) 88.4 % (37.0-80.0); Platelet Count (auto) 157 10^3/uL (140-450); Red Blood Cells 4.69 10^6/uL (4.5-5.90); Red Cell Distribution Width 13.9 % (11.8-14.3); White Blood Cell 9.9 10^3/uL (4.4-10.8)
[2024-09-26 08:00] VITALS: RESP 16; O2SAT 96
[2024-09-26] MEDS ORDERED: ALPRAZolam 0.5 MG TAB PO PRN (08:45)
--- NOTE | 2024-09-26 08:51 | DVHPN2 ---
Reviewed: Care Plan, H&P, Labs, Medications, Previous Orders, Radiology Changes from previous H/P or p: No Changes Objective Vitals Vital Signs Date Time Temp Pulse Resp B/P (MAP) Pulse Ox O2 Delivery O2 Flow Rate FiO2 09/26/24 08:00 16 96 Room Air* 0 21 09/26/24 05:00 97.4 75 102/69 (80) 97.4 Intake/Output Intake and Output 09/26/24 07:00 Intake Total 2100 ml Balance 2100 ml Intake Oral 1200 ml IV Total 900 ml # Voids 13 # Bowel Movements 2 Medications Current Medications Medications Dose Ordered Sig/Naveen Route Start Time Stop Time Status Last Admin Dose Admin Pantoprazole Sodium 40 mg DAILY IV 09/24/24 10:00 09/25/24 09:25 40 MG Folic Acid 1 mg/ Magnesium Sulfate 8 meq/ Multivitamins 10 ml/Thiamine HCl 100 mg/Sodium Chloride 1,013.2 ml @ 126.247 mls/hr DAILY@1800 INJ 09/24/24 18:00 09/25/24 19:03 126.247 MLS/HR Temazepam 15 mg QHSP PRN PO 09/23/24 20:45 09/25/24 22:12 15 MG Ondansetron HCl 4 mg Q4HP PRN IV 09/23/24 20:45 09/24/24 04:43 4 MG Propranolol HCl 20 mg BID PO 09/23/24 22:00 09/25/24 22:13 20 MG Sodium Chloride 1,000 ml @ 150 mls/hr Q6H40M IV 09/24/24 12:45 09/26/24 06:16 150 MLS/HR Alprazolam 1 mg Q8HPRN PRN PO 09/26/24 08:45 UNV Laboratory Results Laboratory Tests 09/24/24 04:44 09/26/24 06:28 Urinalysis Test 09/23/24 13:00 Urine Color Dark-orange (Yellow) Urine Clarity Clear (Clear) Urine pH 6.5 (5.0-9.0) Urine Specific [place] 1.037 (1.001-1.035) Urine Protein 3+ (Negative) H Urine Ketones 4+ (Negative) H Urine Blood 1+ /uL (Negative) H Urine Nitrite Negative (Negative) Urine Bilirubin 2+ (Negative) Urine Urobilinogen 12 mg/dL (Negative) H Urine Leukocyte Esterase Negative /uL (Negative) Urine RBC 5 /hpf (0 - 3) Urine Microscopic WBC 2 /HPF (0-3) Urine Squamous Epithelial Cells Few /hpf (<5) Urine Bacteria None seen /hpf (None Seen) Urine Mucus Few (None Seen) Urine Glucose Trace mg/dL (Normal) Labs and/or images reviewed: Labs reviewed by me, Image(s) reviewed by me Assessment/Plan Assessment/Plan Acute abdominal pain with nausea and vomiting improved Acute pancreatitis lipase 71, Cirrhosis of liver Chronic current alcohol abuse and withdrawal: Banana bag Librium Acute dehydration: IV fluids Stool for occult blood positive Mild gastric duodenitis by EGD by Dr. Long Patient insistent to go home today Plan discussed with: Patient My Orders Orders - DARSHAN PAIZ MD Procedure Category Date Status Time Alprazolam Tablet PHA 09/26/24 Logged (Xanax Tablet) 08:45 Date of Service: Sep 26, 2024 Billing Provider: DARSHAN PAIZ MD Common Visit Codes: [id number] INP/OBS CARE(HIGH) DARSHAN PAIZ MD Sep 26, 2024 08:51
[2024-09-26] MEDS ORDERED: CHL25C PO (08:55)
[2024-09-26] MEDS ORDERED: THIA100T13 PO (08:55)
[2024-09-26] MEDS ORDERED: MULT1TAB95 PO (08:55)
[2024-09-26] MEDS ORDERED: FOLI-119 PO (08:55)
[2024-09-26] MEDS ORDERED: PANT40T PO (08:55)
--- NOTE | 2024-09-26 08:58 | DVHDS2 ---
Discharge Summary Date of Admission Sep 23, 2024 at 18:48 Date of Discharge: Sep 26, 2024 Admitting Diagnosis Abdominal pain nausea and vomiting Wounds: EGD Labs/Diagnostic Data: Laboratory Results Test 09/26/24 06:28 09/25/24 04:36 09/24/24 09:10 09/24/24 04:44 White Blood Count 9.9 10^3/uL (4.4-10.8) Red Blood Count 4.69 10^6/uL (4.5-5.90) Hemoglobin 15.4 g/dL (13.5-17.5) Hematocrit 45.1 % (41.0-53.0) Mean Corpuscular Volume 96.3 fL (80.0-100.0) Mean Corpuscular Hemoglobin 32.8 pg (28.0-32.0) Mean Corpuscular Hemoglobin Concent 34.0 g/dL (32.0-36.0) Red Cell Distribution Width 13.9 % (11.8-14.3) Platelet Count 157 10^3/uL (140-450) Mean Platelet Volume 9.0 fL (6.9-10.8) Neutrophils (%) (Auto) 88.4 % (37.0-80.0) Lymphocytes (%) (Auto) 8.3 % (10.0-50.0) Monocytes (%) (Auto) 3.2 % (0.0-12.0) Eosinophils (%) (Auto) 0.0 % (0.0-7.0) Basophils (%) (Auto) 0.1 % (0.0-2.0) Neutrophils # (Auto) 8.7 10 ^3/uL (1.6-8.6) Lymphocytes # (Auto) 0.8 10 ^3/uL (0.4-5.4) Monocytes # (Auto) 0.3 10 ^3/uL (0-1.3) Eosinophils # (Auto) 0 10 ^3/uL (0-0.8) Basophils # (Auto) 0 10 ^3/uL (0-0.2) Nucleated Red Blood Cells 0.0 % Prothrombin Time 13.7 sec (9.3-11.8) Prothrombin Time INR 1.33 (0.9-1.15) Activated Partial Thromboplast Time 27.6 SEC (24.5-34.5) Lipase 94 U/L (12-53) Stool Occult Blood Positive (Negative) Stool Occult Blood Sample #3 (Negative) Sodium Level 137 mmol/L (136-145) Potassium Level 3.4 mmol/L (3.5-5.1) Chloride Level 98 mmol/L (98-107) Carbon Dioxide Level 26 mmol/L (20-31) Anion Gap 13 (5-15) Blood Urea Nitrogen 9 mg/dL (9-23) Creatinine 0.93 mg/dL (0.700-1.30) Glomerular Filtration Rate Calc 111 mL/min (>90) BUN/Creatinine Ratio 9.7 (10.0-20.0) Serum Glucose 79 mg/dL (74-106) Calcium Level 9.7 mg/dL (8.7-10.4) Total Bilirubin 7.0 mg/dL (0.2-1.0) Aspartate Amino Transferase (AST) 116 U/L (13-40) Alanine Aminotransferase (ALT) 105 U/L (7-40) Alkaline Phosphatase 80 U/L (46-116) Total Protein 7.7 g/dL (5.7-8.2) Albumin 4.7 g/dL (3.2-4.8) Test 09/23/24 21:03 09/23/24 13:00 Ammonia 22 umol/L (11-32) Urine Color Dark-orange (Yellow) Urine Clarity Clear (Clear) Urine pH 6.5 (5.0-9.0) Urine Specific [place] 1.037 (1.001-1.035) Urine Protein 3+ (Negative) Urine Ketones 4+ (Negative) Urine Blood 1+ /uL (Negative) Urine Nitrite Negative (Negative) Urine Bilirubin 2+ (Negative) Urine Urobilinogen 12 mg/dL (Negative) Urine Leukocyte Esterase Negative /uL (Negative) Urine RBC 5 /hpf (0 - 3) Urine Microscopic WBC 2 /HPF (0-3) Urine Squamous Epithelial Cells Few /hpf (<5) Urine Bacteria None seen /hpf (None Seen) Urine Mucus Few (None Seen) Urine Glucose Trace mg/dL (Normal) Plasma/Serum Blood Alcohol < 3.0 mg/dL (<10) Other Laboratory Tests 09/26/24 06:28 09/24/24 04:44 Brief Hx & Hospital Course: 34-year-old male with a history of alcohol abuse came in for abdominal pain nausea and vomiting found to have mild pancreatitis with a lipase of 71. Treated with a banana bag Librium and IV fluids EGD showed mild gastric duodenitis stool for occult blood was positive patient was advised to quit alcohol. The patient wants to go home today discharged home on pantoprazole thiamine folic acid multivitamin and Librium Consults/Reason for consult GI Dr. Ann Long Operations or Procedures EGD Condition at Discharge: Fair Final Diagnosis/Problems List Acute abdominal pain with nausea and vomiting improved Acute pancreatitis lipase 71, Cirrhosis of liver Chronic current alcohol abuse and withdrawal: Banana bag Librium Acute dehydration: IV fluids Stool for occult blood positive Mild gastric duodenitis by EGD by Dr. Long Discharge Disposition: Home Discharge Instruct/Medications Diet: Regular Activity: Light activity Follow Up/Referral: Stop drinking alcohol Use medications as prescribed Follow up with your primary Dr Medications: Thiamine Folic acid Multivitamin Librium Transmitted to pharmacy 35 (Time taken time taken for discharge summary 35 minutes) Discharge Statement: "Patient was advised to return to the ER or call 911 if any headaches, dizziness, shortness of breath, chest pain, abdominal pain, bleeding, fevers, or worsening of medical condition. Patient was counseled about treatment plan, medications, possible side effects, patientverbalized understanding. All questions were answered to the best of my ability. This discharge took greater then 30 minutes in planning, reviewing documentation, counseling the patient, and discussing with other team members." ASSESSMENT ASSESSMENT Hospital Course Improved Assessment Acute abdominal pain with nausea and vomiting improved Acute pancreatitis lipase 71, Cirrhosis of liver Chronic current alcohol abuse and withdrawal: Banana bag Librium Acute dehydration: IV fluids Stool for occult blood positive Mild gastric duodenitis by EGD by Dr. Long Date of Service: Sep 26, 2024 Billing Provider: DARSHAN PAIZ MD Common Visit Codes: [id number] DISCH DAY >30min DARSHAN PAIZ MD Sep 26, 2024 08:58
[2024-09-26 09:00] VITALS: BP 121/87; PULSE 76; RESP 16; TEMP 97.9; O2SAT 97
[2024-09-26 09:05] VITALS: BP 126/88; PULSE 94; TEMP 36.6
[2024-09-26] MEDS ORDERED: PHENYLEPHRINE INJ 10 MG/ML 10ML VIAL IV ONE (09:54)
== END 2024-09-26 09:55 | disposition home or self-care (01) | DRG 241 ==
LOC: ER 11:41 → OVERFLOW 18:48 → WEST WING 09-24 05:08
PROVIDERS: ADMIT Family Medicine; ATTEND Family Medicine
PROC: 0DB68ZX Excision of Stomach, Via Natural or Artificial Opening Endoscopic, Diagnostic (ICD-10-PCS; 2024-09-25)
PROC: 0DB98ZX Excision of Duodenum, Via Natural or Artificial Opening Endoscopic, Diagnostic (ICD-10-PCS; principal; 2024-09-25 12:18)
DX: K29.71 Gastritis, unspecified, with bleeding (principal); K85.90 Acute pancreatitis without necrosis or infection, unspecified; K22.11 Ulcer of esophagus with bleeding; D68.9 Coagulation defect, unspecified; E86.0 Dehydration; K29.81 Duodenitis with bleeding; K29.91 Gastroduodenitis, unspecified, with bleeding; K74.60 Unspecified cirrhosis of liver; F10.139 Alcohol abuse with withdrawal, unspecified; K76.0 Fatty (change of) liver, not elsewhere classified; K44.9 Diaphragmatic hernia without obstruction or gangrene; Z88.6 Allergy status to analgesic agent; Z88.0 Allergy status to penicillin; Z79.899 Other long term (current) drug therapy; Y90.0 Blood alcohol level of less than 20 mg/100 ml
CPT/HCPCS: 36415; 71045; 74176; 80053; 80320; 81001; 82140; 82270; 83690; 85025; 85610; 85730; 86850; 86900; 86901; 96374; 96375; G0378; J1100; J2250; J2405; J2470; J2704

== ENCOUNTER 2025-03-22 10:01 | Inpatient (IN) | payer MEDICAID ==
[~2025-03-22] VITALS: Ht 170.2 cm; Wt 98.9 kg
[~2025-03-22 10:01] MED LIST changes: +CHL25C PO; +FOLI-119 PO; +MULT1TAB95 PO; +PANT40T PO; +THIA100T13 PO
--- NOTE | 2025-03-22 10:39 | ED.PDOC ---
GI ASSESSMENT HPI Comments 34 y/o M, with PMHx of alcohol abuse and liver cirrhosis presents to the ED for CC of abdominal pain. Patient states, he has been experiencing suprapubic abdominal pain with associated nausea and vomiting [id number]. Patient reports, further associated symptoms or nausea and vomiting. At this time patient c/o 10/10 abdominal pain. Patient endorses drinking vodka this morning (03/22/25); last drink to have been as of 0800. Patient denies hematemesis, diarrhea, constipation, or poor appetite. No other symptoms or modifying factors are present at this time. Chief Complaint: Abdominal Pain Time Seen by MD: 10:35 Primary Care Provider: NONE Reviewed Notes: Nurses Notes, Medications, Allergies Allergies: Coded Allergies: Aspirin (Verified Allergy, Mild, 08/11/23) Uncoded Allergies: PENICILLIN (Allergy, Mild, 08/11/23) Home Meds Active Scripts Pantoprazole Sodium Sesquihydr (Pantoprazole Sodium) 40 Mg Tab, 40 MG PO DAILY, #30 TAB Prov:DARSHAN PAIZ MD 09/26/24 Chlordiazepoxide Hcl (Librium) 25 Mg Cp, 25 MG PO TID, #20 CAP Prov:DARSHAN PAIZ MD 09/26/24 Multiple Vitamin (Multi Vitamin) 1 Tab Tab, 1 TAB PO DAILY, #30 TAB Prov:DARSHAN PAIZ MD 09/26/24 Folic Acid (Folic Acid) 1 Mg Tab, 1 MG PO DAILY, #30 TAB Prov:DARSHAN PAIZ MD 09/26/24 Thiamine HCl (Thiamine Hydrochloride) 100 Mg Tab, 100 MG PO DAILY, #30 TAB Prov:DARSHAN PAIZ MD 09/26/24 Ondansetron Odt 4MG Tab (ZOFRAN PO) 4 Mg Tb, 4 MG PO Q8HP PRN for 5 Days, #15 TAB ODT TAB-DISSOLVE IN MOUTH, THEN SWALLOW Prov:DAISHA BROWN MD 08/11/23 Chlordiazepoxide Hcl (Ni-1) (I (Librium) 10 Mg Cap, 10 MG PO BID for 7 Days, #14 CAP Prov:DAISHA BROWN MD 08/11/23 Information Source: Patient Mode of Arrival: Ambulatory Timing: Weeks Duration: Since onset Prehospital treatment: None Quality: None Vomitus: Watery Stool: Normal Severity: Moderate Recent: None Recent Hx of: None Pain Location: Suprapubic Modifying Factors: Nothing Associated sign and symptoms: Nausea, Vomiting, Abdominal Pain Past Medical History PAST MEDICAL HISTORY: Denies Surgical History: Denies all surgeries Family History Family History: Family hx of heart lata Social History Smoker: Non-Smoker Alcohol: Heavy Drugs: Marijuana Lives In: Home Constitutional: reports: chills, fever; denies: diaphoresis, fatigue, malaise, sweats, weakness, others EENTM: denies: blurred vision, double vision, ear bleeding, ear discharge, ear drainage, ear pain, ear ringing, eye pain, eye redness, hearing loss, mouth pain, mouth swelling, nasal discharge, nose bleeding, nose congestion, nose pain, photophobia, tearing, throat pain, throat swelling, voice changes, others Respiratory: denies: cough, hemoptysis, orthopnea, SOB at rest, shortness of breath, SOB with excertion, stridor, wheezing, others Cardiovascular: denies: chest pain, dizzy spells, diaphoresis, Dyspnea on exertion, edema, irregular heart beat, left arm pain, lightheadedness, pal pitations, PND, syncope, others Gastrointestinal: reports: abdominal pain, nausea, vomiting; denies: abdomen distended, blood streaked bowels, constipated, diarrhea, dysphagia, difficulty swallowing, hematemesis, melena, poor appetite, poor fluid intake, rectal bleeding, rectal pain, others Genitourinary: denies: burning, dysuria, flank pain, frequency, hematuria, incontinence, penile discharge, penile sore, pain, testicle pain, testicle swelling, urgency, others Neurological: denies: dizziness, fainting, headache, left sided numbness, left sided weakness, numbness, paresthesia, pre-existing deficit, right sided numbness, right sided weakness, seizure, speech problems, tingling, tremors, weakness, others Musculoskeletal: denies: back pain, gout, joint pain, joint swelling, muscle pain, muscle stiffness, neck pain, others Integumetry: denies: bruises, change in color, change in hair/nails, dryness, laceration, lesions, lumps, rash, wounds, others Allergic/Immunocompromised: denies: Difficulty Healing, Frequent Infections, Hives, Itching, others Hematologic/Lymphatic: denies: anemia, blood clots, easy bleeding, easy bruising, swollen glands, others Endocrine: denies: excessive hunger, excessive sweating, excessive thirst, excessive urination, flushing, intolerance to cold, intolerance to heat, unexplained weight gain, unexplained weight loss, others Psychiatric: denies: anxiety, bipolar disorder, depression, hopeless, panic disorder, schizophrenia, sleepless, suicidal, others All Other Systems: Reviewed and Negative Physical Exam General Appearance: Moderate Distress HEENT: Pharynx Normal, Scleral Icterus (L), Scleral Icterus (R), TMs Normal Neck: Full Range of Motion, Non-Tender, Normal, Normal Inspection Respiratory: Chest Non-Tender, Lungs Clear, No Accessory Muscle Use, No Respiratory Distress, Normal Breath Sounds Cardiovascular: No Edema, No JVD, No Murmur, No Gallop, Normal Peripheral Pulses, Regular Rate/Rhythm Breast Exam: Deferred Gastrointestinal: Distended, Hepatomegaly, No Pulsatile Mass, Normal Bowel Sounds, Tenderness Genitalia: Deferred Pelvic: Deferred Rectal: Deferred Extremities: No calf tenderness, Normal capillary refill, No pedal edema Musculoskeletal : Apperance: Normal Neurologic: Alert, 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 Was a procedure done?: No GI differential Dx Differential Diagnosis: Constipation, Inflammatory BD, Ischemic Bowel X-Ray, Labs, Meds, VS Vital Signs Date Time Temp Pulse Resp B/P (MAP) Pulse Ox O2 Delivery O2 Flow Rate FiO2 03/22/25 11:28 105 18 132/80 03/22/25 11:04 105 16 132/80 (97) 95 03/22/25 10:58 105 16 132/80 03/22/25 10:45 Room Air* 0 21 03/22/25 10:04 97.7 114 19 120/75 100 97.7 Lab Test 03/22/25 10:45 Range/Units White Blood Count 12.7 H 4.4-10.8 10^3/uL Red Blood Count 4.62 4.5-5.90 10^6/uL Hemoglobin 14.5 13.5-17.5 g/dL Hematocrit 41.3 41.0-53.0 % Mean Corpuscular Volume 89.4 80.0-100.0 fL Mean Corpuscular Hemoglobin 31.4 28.0-32.0 pg Mean Corpuscular Hemoglobin Concent 35.1 32.0-36.0 g/dL Red Cell Distribution Width 15.8 H 11.8-14.3 % Platelet Count 218 140-450 10^3/uL Mean Platelet Volume 8.7 6.9-10.8 fL Neutrophils (%) (Auto) 72.1 37.0-80.0 % Lymphocytes (%) (Auto) 17.2 10.0-50.0 % Monocytes (%) (Auto) 9.4 0.0-12.0 % Eosinophils (%) (Auto) 0.4 0.0-7.0 % Basophils (%) (Auto) 0.9 0.0-2.0 % Neutrophils # (Auto) 9.1 H 1.6-8.6 10 ^3/uL Lymphocytes # (Auto) 2.2 0.4-5.4 10 ^3/uL Monocytes # (Auto) 1.2 0-1.3 10 ^3/uL Eosinophils # (Auto) 0 0-0.8 10 ^3/uL Basophils # (Auto) 0.1 0-0.2 10 ^3/uL Nucleated Red Blood Cells 0.1 % Prothrombin Time 15.6 H 9.3-11.8 sec Prothrombin Time INR 1.54 H 0.9-1.15 Activated Partial Thromboplast Time 31.4 24.5-34.5 SEC Sodium Level 139 136-145 mmol/L Potassium Level 3.0 L 3.5-5.1 mmol/L Chloride Level 102 98-107 mmol/L Carbon Dioxide Level 21 20-31 mmol/L Anion Gap 16 H 5-15 Blood Urea Nitrogen < 5 L 9-23 mg/dL Creatinine 0.72 0.700-1.30 mg/dL Glomerular Filtration Rate Calc 124 >90 mL/min BUN/Creatinine Ratio 6.9 L 10.0-20.0 Serum Glucose 96 74-106 mg/dL Calcium Level 8.0 L 8.7-10.4 mg/dL Total Bilirubin 4.9 H 0.2-1.0 mg/dL Aspartate Amino Transferase (AST) 160 H 13-40 U/L Alanine Aminotransferase (ALT) 58 H 7-40 U/L Alkaline Phosphatase 128 H 46-116 U/L Ammonia 51 H 11-32 umol/L Total Protein 7.6 5.7-8.2 g/dL Albumin 4.1 3.2-4.8 g/dL Lipase 69 H 12-53 U/L Current Medications Medications (Trade) Dose Ordered Sig/Naveen Route Start Time Stop Time Status Last Admin Ondansetron HCl (Zofran) 4 mg ONCE ONCE IV 03/22/25 10:45 03/22/25 10:46 DC 03/22/25 10:57 Morphine Sulfate 4 mg ONCE ONCE IV 03/22/25 10:45 03/22/25 10:46 DC 03/22/25 10:58 Pantoprazole Sodium (Protonix) 40 mg ONCE ONCE IV 03/22/25 10:45 03/22/25 10:46 DC 03/22/25 10:57 CT ABD PEL: IMPRESSION: Limited evaluation without contrast. Cirrhotic morphology liver, hepatic steatosis, hepatomegaly. Sequela of portal hypertension including splenomegaly, gastric, perisplenic varices. Moderate volume stool in the colon. Colonic diverticula. Other findings as described. IV Hep-Lock was established. The patient was given Zofran 4 mg IV push for the nausea The patient was given morphine 4 mg IV push for the pain The patient was given Protonix 40 mg IV push The lipase is 69 indicating possible pancreatitis The liver enzymes are also elevated The patient was given potassium as a K rider here in the emergency department's because the potassium is only 3.0 The CBC shows an elevated white blood cell count of 12.7 but otherwise within normal limits At this time, we are going to admit the patient. We feel that the patient may have worsening liver disease with an elevated ammonia level The patient is being admitted Images Reviewed?: Images reviewed and evaluated by me Time of 1ST Reevaluation: 11:05 Reevaluation 1ST: Unchanged Patient Education/Counseling: Diagnosis, Treatment, Prognosis Family Education/Counseling: No Family Present SEPSIS Sepsis Screen Date sepsis recognized/suspect: Mar 22, 2025 Time Sepsis recognized/suspect: 1004 Recent Procedure: No On Antibiotic Therapy: No Respiratory Rate >20: No Heart Rate >90: Yes Temp<36 C (96.8 F) or >38.3 C: No SBP <90 or MAP <65 mmHG: No New Acute Mental Status Change: No Is the patient on CPAP, BIPAP,: No Physician Orders Ct Ab Pel Wo Con-No Oral Or Iv (03/22/25 10:34) Heplock Iv (03/22/25 10:34) Vital Signs Date Time Temp Pulse Resp B/P (MAP) Pulse Ox O2 Delivery O2 Flow Rate FiO2 03/22/25 11:28 105 18 132/80 03/22/25 11:04 105 16 132/80 (97) 95 03/22/25 10:58 105 16 132/80 03/22/25 10:45 Room Air* 0 21 03/22/25 10:04 97.7 114 19 120/75 100 97.7 Laboratory Tests Test 03/22/25 10:45 White Blood Count 12.7 10^3/uL (4.4-10.8) H Medications Medications Dose Ordered Sig/Naveen Route Start Time Stop Time Status Last Admin Dose Admin Morphine Sulfate 4 mg ONCE ONCE IV 03/22/25 10:45 03/22/25 10:46 DC 03/22/25 10:58 Ondansetron HCl 4 mg ONCE ONCE IV 03/22/25 10:45 03/22/25 10:46 DC 03/22/25 10:57 Pantoprazole Sodium 40 mg ONCE ONCE IV 03/22/25 10:45 03/22/25 10:46 DC 03/22/25 10:57 Departure 1 Departure Time of Disposition: 12:17 Impression: Primary Impression: Intractable abdominal pain Additional Impressions: Hepatic encephalopathy Liver cirrhosis Disposition: ADMITTED INPATIENT Admit to: Med Surg Condition: Fair Critical Care Note Critical Care Time?: No Stability Stability form required: No Heart Score Heart Score: Heart Score Response (Comments) Value History N/A 0 EKG N/A 0 Age N/A 0 Risk Factors N/A 0 Troponin N/A 0 Total 0 I personally scribed for DAISHA BROWN MD ([email or web address]) on 03/22/25 at 10:39. Electronically submitted by Loni Levy ([email or web address]). I personally scribed for DAISHA BROWN MD ([email or web address]) on 03/22/25 at 10:45. Electronically submitted by Loni Levy ([email or web address]). I personally scribed for DAISHA BROWN MD ([email or web address]) on 03/22/25 at 12:05. Electronically submitted by Loni Levy ([email or web address]). DAISHA BROWN MD Mar 22, 2025 10:39
[2025-03-22] MEDS: PANTOPRAZOLE 40 MG/10 ML VIAL INJ IV ONE (10:57)
[2025-03-22] MEDS: ONDANSETRON HCL 4 MG/2 ML VIAL IV ONE (10:57)
[2025-03-22] MEDS: MORPHINE SULFATE 4 MG/ML SYR/VIAL IV ONE (10:58)
--- NOTE | 2025-03-22 11:31 | DVH ---
Indication: pain Technique: CT axial images of the abdomen and pelvis are obtained without contrast. Coronal and sagit carlos alberto reformats were obtained. Radiation Dose Information: CTDI volume is 20.58 mGy. Dose-length product is 1381 mGy*cm Comparison: CT CT AB PEL WO CON-NO ORAL OR IV on DOS: 09/23/24 FINDINGS: There is limited interpretation of the abdomen and pelvis without administration of intravenous contr ast. Lung bases demonstrate no pleural effusion. Adrenal glands unremarkable. Spleen enlarged measuring 14.6 cm craniocaudal. Pancreas unremarkable in shape. Hepatic steatosis and hepatomegaly. No CT evidence for cholelithiasis. Cirrhotic morphology appearan ce liver. Splenic, perigastric varices. No hydronephrosis/ nephrolithiasis. Stomach partially distended. Small bowel loops normal in caliber. Colonic diverticular disease. Normal appendix. Bladder partially distended. No free pelvic fluid. No inguinal lymphadenopathy. No aggressive osseous process. Mild thoracolumbar degenerative disc disease. IMPRESSION: Limited evaluation without contrast. Cirrhotic morphology liver, hepatic steatosis, hepatomegaly. Sequela of portal hypertension including splenomegaly, gastric, perisplenic varices. Moderate volume stool in the colon. Colonic diverticula. Other findings as described.
[2025-03-22 11:38] LABS: Hematocrit 41.3 % (41.0-53.0); Hemoglobin 14.5 g/dL (13.5-17.5); Mean Corpuscular Hemoglobin 31.4 pg (28.0-32.0); Mean Corpuscular Volume 89.4 fL (80.0-100.0); Nucleated Red Blood Cells % 0.1 %
[2025-03-22 11:45] LABS: Albumin 4.1 g/dL (3.2-4.8); Anion Gap 16 (5-15); Carbon Dioxide 21 mmol/L (20-31); Chloride 102 mmol/L (98-107); Glucose 96 mg/dL (74-106); Sodium 139 mmol/L (136-145); Total Protein 7.6 g/dL (5.7-8.2)
[2025-03-22 11:47] LABS: INR 1.54 (0.9-1.15); Partial Thromboplastin Time 31.4 SEC (24.5-34.5); Prothrombin Time 15.6 sec (9.3-11.8)
[2025-03-22 11:53] LABS: Alkaline Phosphatase 128 U/L (46-116); BUN/Creatinine Ratio 6.9 (10.0-20.0); Blood Urea Nitrogen < 5 mg/dL (9-23); Potassium 3.0 mmol/L (3.5-5.1)
[2025-03-22 11:54] LABS: Alanine Aminotransferase 58 U/L (7-40); Bilirubin, Total 4.9 mg/dL (0.2-1.0); Calcium 8.0 mg/dL (8.7-10.4); Lipase 69 U/L (12-53)
[2025-03-22] MEDS: SODIUM CHLORIDE 0.9% 500 ML IV ONE (17:00)
[2025-03-22] MEDS: LORazepam 2MG/ML-1ML VIAL IV ONE (17:24)
[2025-03-22 20:55] VITALS: BP 130/74; PULSE 98; RESP 19; TEMP 99.6; O2SAT 95
[2025-03-22] MEDS: LACTULOSE 20Gm/30ML SOLN PO SCH (22:00)
--- NOTE | 2025-03-22 22:03 | DVHHP2 ---
History of Present Illness Reason for Visit: Generalized weakness History of Present Illness 34-year-old male presents for evaluation of generalized weakness. Patient reports history of liver cirrhosis secondary to alcohol abuse. He states his last drink being three weeks ago. He states recently having nausea with vomiting and tremors. He also reports diffuse abdominal pain he states drinking a shot of vodka today in the morning. Past Medical History Liver cirrhosis Past Surgical History Denies Family History Heart disease Smoke: No ALCOHOL: heavy Drugs: Marijuana Review of Systems Review of Systems Review of systems are currently negative otherwise addressed in HPI. Allergies: Coded Allergies: Aspirin (Verified Allergy, Mild, 08/11/23) Uncoded Allergies: PENICILLIN (Allergy, Mild, 08/11/23) Medications Current Medications Medications Dose Ordered Sig/Naveen Route Start Time Stop Time Status Last Admin Dose Admin Propranolol HCl 20 mg BID PO 03/22/25 22:00 Lactulose 30 ml BID PO 03/22/25 22:00 Pantoprazole Sodium 40 mg DAILY@0600 PO 03/23/25 06:00 Tramadol HCl 50 mg Q6HP PRN PO 03/22/25 19:15 Ondansetron HCl 4 mg Q4HP PRN IV 03/22/25 19:15 Chlordiazepoxide HCl 50 mg Q8H PO 03/22/25 19:15 03/23/25 11:16 03/22/25 19:46 50 MG Chlordiazepoxide HCl 50 mg Q12HR PO 03/23/25 10:00 03/23/25 22:01 Chlordiazepoxide HCl 25 mg Q12HR PO 03/24/25 10:00 03/24/25 22:01 Chlordiazepoxide HCl 25 mg QAM PO 03/25/25 07:00 03/25/25 07:01 Exam Vital Signs Vital Signs Date Time Temp Pulse Resp B/P (MAP) Pulse Ox O2 Delivery O2 Flow Rate FiO2 03/22/25 18:05 121 16 133/71 (91) 97 03/22/25 10:45 Room Air* 0 21 03/22/25 10:04 97.7 97.7 Exam Gen: 34-year-old male in mild distress Skin: Warm, dry, mild jaundice, no rash. HEENT: Normocephalic atraumatic, mucous membranes moist and pink. Neck: Cervical and supraclavicular nodes normal without enlargement, trachea is midline, thyroid gland is normal without masses. Pulmonary: Clear to auscultation and percussion bilaterally. Cardiac: Regular rate and rhythm. No murmur Abdomen: Soft, nontender, nondistended, bowel sounds present all 4 quadrants, no guarding, no rigidity, no organomegaly. Extremities: No cyanosis, clubbing, no edema Neuro: Cranial nerves II through XII grossly intact, normal affect and speech, no focal motor deficits. Labs/Xrays ORDERING PHYSICIAN: DAISHA BROWN MD PROCEDURE(s): ABPL - CT AB PEL WO CON-NO ORAL OR IV REASON: pain ORDER NUMBER(s): [id number], ACCESSION NUMBER(s): [id number] Indication: pain Technique: CT axial images of the abdomen and pelvis are obtained without contrast. Coronal and sagittal reformats were obtained. Radiation Dose Information: CTDI volume is 20.58 mGy. Dose-length product is 1381 mGy*cm Comparison: CT CT AB PEL WO CON-NO ORAL OR IV on DOS: 09/23/24 FINDINGS: There is limited interpretation of the abdomen and pelvis without administration of intravenous contrast. Lung bases demonstrate no pleural effusion. Adrenal glands unremarkable. Spleen enlarged measuring 14.6 cm craniocaudal. Pancreas unremarkable in shape. Hepatic steatosis and hepatomegaly. No CT evidence for cholelithiasis. Cirrhotic morphology appearance liver. Splenic, perigastric varices. No hydronephrosis/ nephrolithiasis. Stomach partially distended. Small bowel loops normal in caliber. Colonic diverticular disease. Normal appendix. Bladder partially distended. No free pelvic fluid. No inguinal lymphadenopathy. No aggressive osseous process. Mild thoracolumbar degenerative disc disease. IMPRESSION: Limited evaluation without contrast. Cirrhotic morphology liver, hepatic steatosis, hepatomegaly. Sequela of portal hypertension including splenomegaly, gastric, perisplenic varices. Moderate volume stool in the colon. Colonic diverticula. Other findings as described. Labs Test 03/22/25 10:45 Range/Units White Blood Count 12.7 H 4.4-10.8 10^3/uL Red Blood Count 4.62 4.5-5.90 10^6/uL Hemoglobin 14.5 13.5-17.5 g/dL Hematocrit 41.3 41.0-53.0 % Mean Corpuscular Volume 89.4 80.0-100.0 fL Mean Corpuscular Hemoglobin 31.4 28.0-32.0 pg Mean Corpuscular Hemoglobin Concent 35.1 32.0-36.0 g/dL Red Cell Distribution Width 15.8 H 11.8-14.3 % Platelet Count 218 140-450 10^3/uL Mean Platelet Volume 8.7 6.9-10.8 fL Neutrophils (%) (Auto) 72.1 37.0-80.0 % Lymphocytes (%) (Auto) 17.2 10.0-50.0 % Monocytes (%) (Auto) 9.4 0.0-12.0 % Eosinophils (%) (Auto) 0.4 0.0-7.0 % Basophils (%) (Auto) 0.9 0.0-2.0 % Neutrophils # (Auto) 9.1 H 1.6-8.6 10 ^3/uL Lymphocytes # (Auto) 2.2 0.4-5.4 10 ^3/uL Monocytes # (Auto) 1.2 0-1.3 10 ^3/uL Eosinophils # (Auto) 0 0-0.8 10 ^3/uL Basophils # (Auto) 0.1 0-0.2 10 ^3/uL Nucleated Red Blood Cells 0.1 % Prothrombin Time 15.6 H 9.3-11.8 sec Prothrombin Time INR 1.54 H 0.9-1.15 Activated Partial Thromboplast Time 31.4 24.5-34.5 SEC Sodium Level 139 136-145 mmol/L Potassium Level 3.0 L 3.5-5.1 mmol/L Chloride Level 102 98-107 mmol/L Carbon Dioxide Level 21 20-31 mmol/L Anion Gap 16 H 5-15 Blood Urea Nitrogen < 5 L 9-23 mg/dL Creatinine 0.72 0.700-1.30 mg/dL Glomerular Filtration Rate Calc 124 >90 mL/min BUN/Creatinine Ratio 6.9 L 10.0-20.0 Serum Glucose 96 74-106 mg/dL Calcium Level 8.0 L 8.7-10.4 mg/dL Total Bilirubin 4.9 H 0.2-1.0 mg/dL Aspartate Amino Transferase (AST) 160 H 13-40 U/L Alanine Aminotransferase (ALT) 58 H 7-40 U/L Alkaline Phosphatase 128 H 46-116 U/L Ammonia 51 H 11-32 umol/L Total Protein 7.6 5.7-8.2 g/dL Albumin 4.1 3.2-4.8 g/dL Lipase 69 H 12-53 U/L SEPSIS Sepsis Screen Date sepsis recognized/suspect: Mar 22, 2025 Time Sepsis recognized/suspect: 100 Recent Procedure: No On Antibiotic Therapy: No Respiratory Rate >20: No Heart Rate >90: Yes Temp<36 C (96.8 F) or >38.3 C: No SBP <90 or MAP <65 mmHG: No New Acute Mental Status Change: No Is the patient on CPAP, BIPAP,: No Physician Orders Propranolol Hcl Tablet (Inderal Tablet) (03/22/25 22:00) Lactulose Oral (03/22/25 22:00) Pantoprazole Tablet (Protonix Tablet) (03/23/25 06:00) Tramadol Hcl (Ultram) (03/22/25 19:15) Admit (03/22/25 19:03) Ondansetron Hcl (Zofran) (03/22/25 19:15) Complete Blood Count (03/23/25 04:00) Comprehensive Metabolic Panel (03/23/25 04:00) Condition: Stable (03/22/25 19:03) Bedrest With Bathroom Privileg (03/22/25 19:03) Chlordiazepoxide Hcl Capsule (Librium Ca (03/22/25 19:15) Chlordiazepoxide Hcl Capsule (Librium Ca (03/23/25 10:00) Chlordiazepoxide Hcl Capsule (Librium Ca (03/24/25 10:00) Chlordiazepoxide Hcl Capsule (Librium Ca (03/25/25 07:00) Potassium Er Tablet (Klor-Con Tablet) (03/22/25 22:00) Vital Signs Date Time Temp Pulse Resp B/P (MAP) Pulse Ox O2 Delivery O2 Flow Rate FiO2 03/22/25 18:05 121 16 133/71 (91) 97 Laboratory Tests Test 03/22/25 10:45 White Blood Count 12.7 10^3/uL (4.4-10.8) H Medications Medications Dose Ordered Sig/Naveen Route Start Time Stop Time Status Last Admin Dose Admin Chlordiazepoxide HCl 50 mg Q8H PO 03/22/25 19:15 03/23/25 11:16 03/22/25 19:46 50 MG Lorazepam 2 mg ONCE ONCE IV 03/22/25 17:00 03/22/25 17:01 DC 03/22/25 17:24 2 MG Morphine Sulfate 4 mg ONCE ONCE IV 03/22/25 10:45 03/22/25 10:46 DC 03/22/25 10:58 4 MG Ondansetron HCl 4 mg ONCE ONCE IV 03/22/25 10:45 03/22/25 10:46 DC 03/22/25 10:57 4 MG Pantoprazole Sodium 40 mg ONCE ONCE IV 03/22/25 10:45 03/22/25 10:46 DC 03/22/25 10:57 40 MG Sodium Chloride 500 ml @ 500 mls/hr Q1H ONCE IV 03/22/25 17:00 03/22/25 17:59 DC 03/22/25 17:00 500 MLS/HR Assessment/Plan Assessment/Plan Assessment Hepatic encephalopathy Hyperammonemia Hypokalemia Transaminitis Alcohol withdrawal Plan Admit the patient to Med surge to the hospitalist Librium taper Lactulose Resume home medications Continue treatment per orders Plan discussed with: Patient [facility] Procedure Category Date Status Time Propranolol Hcl PHA 03/22/25 In Process Tablet (Inderal 22:00 Lactulose Oral PHA 03/22/25 In Process 22:00 Pantoprazole Tablet PHA 03/23/25 In Process (Protonix Tablet) 06:00 Tramadol Hcl (Ultram) PHA 03/22/25 In Process 19:15 Admit ADMIT 03/22/25 Transmitted 19:03 Ondansetron Hcl PHA 03/22/25 In Process (Zofran) 19:15 Complete Blood Count LAB 03/23/25 Verified 04:00 Comprehensive LAB 03/23/25 Verified Metabolic Panel 04:00 Condition: Stable LATA 03/22/25 In Process 19:03 Bedrest With Bathroom LATA 03/22/25 In Process Privileg 19:03 Chlordiazepoxide Hcl PHA 03/22/25 In Process Capsule (Librium Ca 19:15 Chlordiazepoxide Hcl PHA 03/23/25 In Process Capsule (Librium Ca 10:00 Chlordiazepoxide Hcl PHA 03/24/25 In Process Capsule (Librium Ca 10:00 Chlordiazepoxide Hcl PHA 03/25/25 In Process Capsule (Librium Ca 07:00 Potassium Er Tablet PHA 03/22/25 Logged (Klor-Con Tablet) 22:00 Date of Service: Mar 22, 2025 Billing Provider: DANIKA BOUCHER Common Visit Codes: [id number] INP/OBS CARE (MOD) DANIKA BOUCHER Mar 22, 2025 22:03
[2025-03-22] MEDS: PROPRANOLOL HCL 20 MG TAB PO SCH (22:31)
[2025-03-22] MEDS: POTASSIUM CHL 20 Meq TABLET PO ONE (22:31)
[2025-03-23] MEDS: TEMAZEPAM 15 MG CAP PO ONE (00:46)
[2025-03-23 00:57] VITALS: BP 101/69; PULSE 83; RESP 21; TEMP 97.9; O2SAT 92
[2025-03-23] MEDS: PANTOPRAZOLE 40 MG TAB PO SCH (05:33)
[2025-03-23 05:51] LABS: Albumin 4.0 g/dL (3.2-4.8); Alkaline Phosphatase 115 U/L (46-116); Anion Gap 10 (5-15); BUN/Creatinine Ratio 6.3 (10.0-20.0); Carbon Dioxide 27 mmol/L (20-31); Glucose 95 mg/dL (74-106); Total Protein 7.7 g/dL (5.7-8.2)
[2025-03-23 05:53] LABS: Hematocrit 41.6 % (41.0-53.0); Hemoglobin 14.4 g/dL (13.5-17.5); Mean Corpuscular Hemoglobin 31.5 pg (28.0-32.0); Mean Corpuscular Volume 90.6 fL (80.0-100.0); Nucleated Red Blood Cells % 0.1 %
[2025-03-23 05:57] LABS: Alanine Aminotransferase 45 U/L (7-40); Bilirubin, Total 6.6 mg/dL (0.2-1.0); Blood Urea Nitrogen 5 mg/dL (9-23); Calcium 8.5 mg/dL (8.7-10.4); Chloride 98 mmol/L (98-107); Potassium 3.4 mmol/L (3.5-5.1); Sodium 135 mmol/L (136-145)
[2025-03-23 08:05] VITALS: BP 118/72; PULSE 87; RESP 18; TEMP 98.8; O2SAT 94
[2025-03-23] MEDS: ONDANSETRON HCL 4 MG/2 ML VIAL IV PRN (08:05)
[2025-03-23 13:00] VITALS: BP 106/68; PULSE 64; RESP 16; TEMP 98.8; O2SAT 91
[2025-03-23] MEDS ORDERED: FOLIC ACID 1 MG, MULTIPLE VITAMIN 10 ML, MAGNESIUM SULF SDV 50% 8 MEQ, THIAMINE INJ 100... INJ SCH (13:15)
[2025-03-23] MEDS: LORazepam 2MG/ML-1ML VIAL IV PRN (13:44)
[2025-03-23] MEDS: POTASSIUM EFFERVESENT TAB 25 MEQ PO ONE (13:44)
--- NOTE | 2025-03-23 15:14 | DVHPN2 ---
Subjective Patient continues to report epigastric pain radiating to his back. Reviewed: Care Plan Changes from previous H/P or p: No Changes General: Per HPI Objective Vitals Vital Signs Date Time Temp Pulse Resp B/P (MAP) Pulse Ox O2 Delivery O2 Flow Rate FiO2 03/23/25 13:00 98.8 64 16 106/68 (81) 91 98.8 03/22/25 10:45 Room Air* 0 21 General Appearance: Alert, Oriented X3, Cooperative, No acute distress HEENT: Atraumatic, PERRLA Lungs: Clear to auscultation, Normal air movement Cardiovascular: Normal S1, Normal S2 Abdomen: Normal bowel sounds, Soft, No tenderness Musculoskeletal: Normal sensory function Skin: Dry, Intact Psych/Mental Status: Mental status NL, Mood NL Medications Current Medications Medications Dose Ordered Sig/Naveen Route Start Time Stop Time Status Last Admin Dose Admin Propranolol HCl 20 mg BID PO 03/22/25 22:00 03/23/25 08:33 20 MG Lactulose 30 ml BID PO 03/22/25 22:00 03/23/25 08:05 30 ML Pantoprazole Sodium 40 mg DAILY@0600 PO 03/23/25 06:00 03/23/25 05:33 40 MG Tramadol HCl 50 mg Q6HP PRN PO 03/22/25 19:15 03/23/25 08:13 50 MG Ondansetron HCl 4 mg Q4HP PRN IV 03/22/25 19:15 03/23/25 08:05 4 MG Lorazepam 1 mg Q4HPRN PRN IV 03/23/25 13:15 03/23/25 13:44 1 MG Chlordiazepoxide HCl 25 mg Q6HR PO 03/23/25 18:00 Folic Acid 1 mg/ Multivitamins 10 ml/Magnesium Sulfate 8 meq/ Thiamine HCl 100 mg/Dextrose 1,013.2 ml @ 125.001 mls/hr DAILY@1800 INJ 03/23/25 18:00 Laboratory Results Laboratory Tests 03/23/25 05:01 Chemistry Test 03/23/25 05:01 Albumin 4.0 g/dL (3.2-4.8) Calcium Level 8.5 mg/dL (8.7-10.4) L Total Protein 7.7 g/dL (5.7-8.2) LFT Test 03/23/25 05:01 Alanine Aminotransferase (ALT) 45 U/L (7-40) H Alkaline Phosphatase 115 U/L (46-116) Aspartate Amino Transferase (AST) 119 U/L (13-40) H Total Bilirubin 6.6 mg/dL (0.2-1.0) H Labs and/or images reviewed: Labs reviewed by me, Image(s) reviewed by me Assessment/Plan Assessment/Plan Impression: -acute alcohol withdrawal/delirium tremens -obesity -cirrhosis of the liver -alcoholism -hypokalemia -toxic metabolic encephalopathy -sirs -obesity -abdominal pain,? Pancreatitis Plan: -continue Librium with p.r.n. IV Ativan -banana bag daily -potassium replacement -advance diet -Lifestyle modification education: Patient reports that he is currently in treatment with alcohol anonymous. -repeat labs in a.m. -pain management Total time spent with patient discussing and formulating plan of care: 35 minutes. This medical document was created using an electronic medical record system with [employer] dictation system. Although this document has been carefully reviewed, there may still be some phonetic and typographical errors. These areas are purely typographical due to imperfections of the software programs, and do not reflect any compromise in the patient's medical care. Plan discussed with: Patient, Other (RN) My Orders Orders - DEXTER MAXWELL NP Procedure Category Date Status Time Lorazepam 2mg/Ml Inj PHA 03/23/25 In Process (Ativan Inj) 13:15 Chlordiazepoxide Hcl PHA 03/23/25 In Process Capsule (Librium Ca 18:00 Regular Diet DIET 03/23/25 Transmitted Lunch Folic Acid... PHA 03/23/25 In Process 18:00 Basic Metabolic Panel LAB 03/24/25 Verified 04:00 Magnesium LAB 03/24/25 Verified 04:00 Date of Service: Mar 23, 2025 Billing Provider: DEXTER MAXWELL NP Common Visit Codes: [id number] INP/OBS CARE(HIGH) DEXTER MAXWELL NP Mar 23, 2025 15:14
[2025-03-23 17:00] VITALS: BP 113/63; PULSE 87; RESP 16; TEMP 98.8; O2SAT 91
[2025-03-23] MEDS: FOLIC ACID 1 MG, MULTIPLE VITAMIN 10 ML, MAGNESIUM SULF SDV 50% 8 MEQ, THIAMINE INJ 100... INJ SCH (17:38)
[2025-03-23 21:00] VITALS: BP 120/83; PULSE 99; RESP 19; TEMP 98.1; O2SAT 93
[2025-03-23] MEDS: HYDROcodone-ACET 5/325MG TAB PO PRN (21:30)
[2025-03-23 22:21] VITALS: BP 106/76; PULSE 87; RESP 16; TEMP 98; O2SAT 94
[2025-03-24] VITALS (7 sets, daily range): BP systolic 92–112; BP diastolic 40–75; PULSE 85–96; RESP 16–18; TEMP 97.7–99; O2SAT 94–95
[2025-03-24 07:40] LABS: Anion Gap 11 (5-15); Carbon Dioxide 27 mmol/L (20-31)
[2025-03-24 07:46] LABS: BUN/Creatinine Ratio 6.5 (10.0-20.0); Glucose 83 mg/dL (74-106)
[2025-03-24 07:47] LABS: Magnesium 1.9 mg/dL (1.6-2.6)
[2025-03-24 07:51] LABS: Blood Urea Nitrogen 6 mg/dL (9-23); Calcium 8.5 mg/dL (8.7-10.4); Chloride 96 mmol/L (98-107); Potassium 3.2 mmol/L (3.5-5.1); Sodium 134 mmol/L (136-145)
--- NOTE | 2025-03-24 11:17 | DVHPN2 ---
Subjective Reporting visual hallucinations. Reviewed: Care Plan Changes from previous H/P or p: No Changes General: Per HPI Objective Vitals Vital Signs Date Time Temp Pulse Resp B/P (MAP) Pulse Ox O2 Delivery O2 Flow Rate FiO2 03/24/25 10:00 88 92/56 03/24/25 05:00 98.2 16 95 98.2 03/23/25 22:57 Room Air* 0 21 Intake/Output Intake and Output 03/24/25 07:00 Intake Total 1015 ml Balance 1015 ml Intake Oral 1015 ml # Voids 3 # Bowel Movements 4 General Appearance: Alert, Oriented X3, Cooperative, No acute distress HEENT: Atraumatic, PERRLA Lungs: Clear to auscultation, Normal air movement Cardiovascular: Normal S1, Normal S2 Abdomen: Normal bowel sounds, Soft, No tenderness Musculoskeletal: Normal sensory function Skin: Dry, Intact Psych/Mental Status: Mental status NL, Mood NL Medications Current Medications Medications Dose Ordered Sig/Naveen Route Start Time Stop Time Status Last Admin Dose Admin Propranolol HCl 20 mg BID PO 03/22/25 22:00 03/23/25 21:27 20 MG Lactulose 30 ml BID PO 03/22/25 22:00 03/23/25 21:26 30 ML Pantoprazole Sodium 40 mg DAILY@0600 PO 03/23/25 06:00 03/24/25 05:42 40 MG Tramadol HCl 50 mg Q6HP PRN PO 03/22/25 19:15 03/23/25 08:13 50 MG Ondansetron HCl 4 mg Q4HP PRN IV 03/22/25 19:15 03/23/25 08:05 4 MG Lorazepam 1 mg Q4HPRN PRN IV 03/23/25 13:15 03/24/25 01:56 1 MG Chlordiazepoxide HCl 25 mg Q6HR PO 03/23/25 18:00 03/24/25 05:41 25 MG Folic Acid 1 mg/ Multivitamins 10 ml/Magnesium Sulfate 8 meq/ Thiamine HCl 100 mg/Dextrose 1,013.2 ml @ 125.001 mls/hr DAILY@1800 INJ 03/23/25 18:00 03/23/25 17:38 125.001 MLS/HR Acetaminophen/ Hydrocodone Bitart 1 tab Q4HPRN PRN PO 03/23/25 15:15 03/24/25 10:03 1 TAB Potassium Bicarbonate 50 meq DAILY PO 03/25/25 10:00 UNV Laboratory Results Laboratory Tests 03/23/25 05:01 03/24/25 07:04 Chemistry Test 03/24/25 07:04 Calcium Level 8.5 mg/dL (8.7-10.4) L Magnesium Level 1.9 mg/dL (1.6-2.6) Labs and/or images reviewed: Labs reviewed by me, Image(s) reviewed by me Assessment/Plan Assessment/Plan Impression: -acute alcohol withdrawal/delirium tremens -obesity -cirrhosis of the liver -alcoholism -hypokalemia -toxic metabolic encephalopathy -sirs -obesity -abdominal pain,? Pancreatitis Plan: Events: Continues to have visual hallucinations/ tremors. -continue Librium with p.r.n. IV Ativan -banana bag daily -potassium replacement -advance diet -Lifestyle modification education: Patient reports that he is currently in treatment with alcohol anonymous. -repeat labs in a.m. -pain management Total time spent with patient discussing and formulating plan of care: 35 minutes. This medical document was created using an electronic medical record system with [employer] dictation system. Although this document has been carefully reviewed, there may still be some phonetic and typographical errors. These areas are purely typographical due to imperfections of the software programs, and do not reflect any compromise in the patient's medical care. Plan discussed with: Patient, Other (RN) My Orders Orders - DEXTER MAXWELL NP Procedure Category Date Status Time Lorazepam 2mg/Ml Inj PHA 03/23/25 In Process (Ativan Inj) 13:15 Chlordiazepoxide Hcl PHA 03/23/25 In Process Capsule (Librium Ca 18:00 Regular Diet DIET 03/23/25 Transmitted Lunch Folic Acid... PHA 03/23/25 In Process 18:00 Hydrocodone-Acet PHA 03/23/25 In Process 5/325mg Tab (Wilson 15:15 Potassium Effervesent PHA 03/25/25 Logged Tab (Klor-Con/Ef) 10:00 Basic Metabolic Panel LAB 03/25/25 Verified 04:00 Ns W Potassium 20meq PHA 03/24/25 Transmitted 11:15 Date of Service: Mar 24, 2025 Billing Provider: DEXTER MAXWELL POLE [employer]IMBER Common Visit Codes: [id number] INP/OBS CARE(HIGH) DEXTER MAXWELL NP Mar 24, 2025 11:17
[2025-03-24] MEDS: SOD CHL 0.9%/ KCL 20MEQ 1,000 ML IV ONE (11:51)
[2025-03-24] MEDS: MAGNESIUM OXIDE 400 MG TAB PO ONE (17:09)
[2025-03-24] MEDS: THIAMINE HCL 100 MG TAB PO ONE (17:09)
[2025-03-24] MEDS: MULTIPLE VITAMIN TAB PO ONE (17:09)
[2025-03-24] MEDS: FOLIC ACID 1 MG TAB PO ONE (17:09)
[2025-03-24] MEDS: TEMAZEPAM 15 MG CAP PO ONE (23:43)
[2025-03-25 05:00] VITALS: BP 114/76; PULSE 89; RESP 18; TEMP 97.9; O2SAT 95
[2025-03-25 06:57] LABS: Anion Gap 11 (5-15); Calcium 8.7 mg/dL (8.7-10.4); Carbon Dioxide 25 mmol/L (20-31); Chloride 100 mmol/L (98-107)
[2025-03-25 06:58] LABS: Potassium 3.5 mmol/L (3.5-5.1); Sodium 136 mmol/L (136-145)
[2025-03-25 07:03] LABS: BUN/Creatinine Ratio 7.0 (10.0-20.0); Glucose 92 mg/dL (74-106)
[2025-03-25 07:06] LABS: Blood Urea Nitrogen 6 mg/dL (9-23)
[2025-03-25 08:00] VITALS: PULSE 83; RESP 20; O2SAT 93
[2025-03-25 08:30] VITALS: BP 93/55; PULSE 83; RESP 20; TEMP 98.7; O2SAT 93
[2025-03-25] MEDS: FOLIC ACID 1 MG TAB PO SCH (08:56)
[2025-03-25] MEDS: THIAMINE HCL 100 MG TAB PO SCH (08:56)
[2025-03-25] MEDS: MAGNESIUM OXIDE 400 MG TAB PO SCH (08:56)
[2025-03-25] MEDS: MULTIPLE VITAMIN TAB PO SCH (08:56)
[2025-03-25] MEDS: POTASSIUM EFFERVESENT TAB 25 MEQ PO SCH (08:57)
[2025-03-25] MEDS ORDERED: LORA-655 PO (13:00)
[2025-03-25] MEDS ORDERED: THIA100T10 PO (13:00)
--- NOTE | 2025-03-25 13:04 | DVHDS2 ---
Discharge Summary Date of Admission Mar 22, 2025 at 19:03 Date of Discharge: Mar 25, 2025 Admitting Diagnosis Hepatic encephalopathy Labs/Diagnostic Data: Laboratory Results Test 03/25/25 05:38 03/24/25 07:04 03/23/25 05:01 03/22/25 10:45 Sodium Level 136 mmol/L (136-145) Potassium Level 3.5 mmol/L (3.5-5.1) Chloride Level 100 mmol/L (98-107) Carbon Dioxide Level 25 mmol/L (20-31) Anion Gap 11 (5-15) Blood Urea Nitrogen 6 mg/dL (9-23) Creatinine 0.86 mg/dL (0.700-1.30) Glomerular Filtration Rate Calc 117 mL/min (>90) BUN/Creatinine Ratio 7.0 (10.0-20.0) Serum Glucose 92 mg/dL (74-106) Calcium Level 8.7 mg/dL (8.7-10.4) Magnesium Level 1.9 mg/dL (1.6-2.6) White Blood Count 10.4 10^3/uL (4.4-10.8) Red Blood Count 4.59 10^6/uL (4.5-5.90) Hemoglobin 14.4 g/dL (13.5-17.5) Hematocrit 41.6 % (41.0-53.0) Mean Corpuscular Volume 90.6 fL (80.0-100.0) Mean Corpuscular Hemoglobin 31.5 pg (28.0-32.0) Mean Corpuscular Hemoglobin Concent 34.7 g/dL (32.0-36.0) Red Cell Distribution Width 16.4 % (11.8-14.3) Platelet Count 194 10^3/uL (140-450) Mean Platelet Volume 8.8 fL (6.9-10.8) Neutrophils (%) (Auto) 70.5 % (37.0-80.0) Lymphocytes (%) (Auto) 16.1 % (10.0-50.0) Monocytes (%) (Auto) 10.9 % (0.0-12.0) Eosinophils (%) (Auto) 1.4 % (0.0-7.0) Basophils (%) (Auto) 1.1 % (0.0-2.0) Neutrophils # (Auto) 7.3 10 ^3/uL (1.6-8.6) Lymphocytes # (Auto) 1.7 10 ^3/uL (0.4-5.4) Monocytes # (Auto) 1.1 10 ^3/uL (0-1.3) Eosinophils # (Auto) 0.1 10 ^3/uL (0-0.8) Basophils # (Auto) 0.1 10 ^3/uL (0-0.2) Nucleated Red Blood Cells 0.1 % Total Bilirubin 6.6 mg/dL (0.2-1.0) Aspartate Amino Transferase (AST) 119 U/L (13-40) Alanine Aminotransferase (ALT) 45 U/L (7-40) Alkaline Phosphatase 115 U/L (46-116) Total Protein 7.7 g/dL (5.7-8.2) Albumin 4.0 g/dL (3.2-4.8) Prothrombin Time 15.6 sec (9.3-11.8) Prothrombin Time INR 1.54 (0.9-1.15) Activated Partial Thromboplast Time 31.4 SEC (24.5-34.5) Ammonia 51 umol/L (11-32) Lipase 69 U/L (12-53) Other Laboratory Tests 03/25/25 05:38 03/23/25 05:01 Brief Hx & Hospital Course: History of Present Illness 34-year-old male presents for evaluation of generalized weakness. Patient reports history of liver cirrhosis secondary to alcohol abuse. He states his last drink being three weeks ago. He states recently having nausea with vomiting and tremors. He also reports diffuse abdominal pain he states drinking a shot of vodka today in the morning. Course of hospitalization: Patient was questioned regarding his history of alcoholism, for which he states that he is currently enrolled with alcoholic anonymous, but had recent stress in his life which made him back slide in revert to alcohol intake. Patient did have tremors as well as visual hallucinations which have resolved. While in the hospital he was treated with a tapering dose of Librium with IV lorazepam for breakthrough withdrawal symptoms. Patient was also given banana bag daily. Patient's mentation has improved. Delirium tremens has resolved. Long discussion was made with the patient regarding discharge plan, for which he will follow up with his PCP in 1-2 weeks as well as his psychiatrist in 1-2 weeks. He will be given a prescription for thiamine 100 mg p.o. daily as well as Ativan 0.5 mg p.o. b.i.d. as needed for withdrawal symptoms. Patient was agreeable with discharge plan. All questions answered. Physical examination General: Alert and Oriented x3. No acute distress. Well-nourished. Obese Eyes: EOMI. Anicteric. HENT: Moist mucous membranes. Lungs: Clear to auscultation bilaterally. No accessory muscle use. Cardiovascular: Regular rate and rhythm. No murmur. No JVD. Abdomen: Soft, non-tender and non-distended. No palpable masses. Extremities: No edema. Non-tender. Skin: No rashes or lesions. Warm. Neurologic: No focal neurological deficits. CN II-XII grossly intact, but not individually tested. Psychiatric: Cooperative. Appropriate mood and affect. Total time spent with patient discussing and formulating plan of care: 35 minutes. This medical document was created using an electronic medical record system with [employer] dictation system. Although this document has been carefully reviewed, there may still be some phonetic and typographical errors. These areas are purely typographical due to imperfections of the software programs, and do not reflect any compromise in the patient's medical care. Condition at Discharge: Fair Final Diagnosis/Problems List Acute alcohol withdrawal with delirium tremens Secondary diagnosis: -acute alcohol withdrawal/delirium tremens -obesity -cirrhosis of the liver -alcoholism -hypokalemia -toxic metabolic encephalopathy -sirs -obesity -abdominal pain,? Pancreatitis Discharge Disposition: Home Discharge Instruct/Medications Diet: Regular Activity: No Restrictions, As Tolerated Follow Up/Referral: Follow up with primary care provider at [facility] in one week Medications: Thiamine 100 mg p.o. daily Ativan 0.5 mg p.o. b.i.d. as needed for anxiety. Scheduled Chlordiazepoxide Hcl (Librium), 25 MG PO TID Chlordiazepoxide Hcl (Ni-1) (I (Librium), 10 MG PO BID Folic Acid (Folic Acid), 1 MG PO DAILY Lorazepam (Ativan), 0.5 MG PO BID Multiple Vitamin (Multi Vitamin), 1 TAB PO DAILY Pantoprazole Sodium Sesquihydr (Pantoprazole Sodium), 40 MG PO DAILY Thiamine HCl (Thiamine Hydrochloride), 100 MG PO DAILY Thiamine Hcl (Vitamin B-1), 100 MG PO DAILY Scheduled PRN Ondansetron Odt 4MG Tab (Zofran Po), 4 MG PO Q8HP PRN 36 Discharge Statement: "Patient was advised to return to the ER or call 911 if any headaches, dizziness, shortness of breath, chest pain, abdominal pain, bleeding, fevers, or worsening of medical condition. Patient was counseled about treatment plan, medications, possible side effects, patientverbalized understanding. All questions were answered to the best of my ability. This discharge took greater then 30 minutes in planning, reviewing documentation, counseling the patient, and discussing with other team members." ASSESSMENT ASSESSMENT Assessment Acute alcohol withdrawal with delirium tremens Date of Service: Mar 25, 2025 Billing Provider: DEXTER MAXWELL NP Common Visit Codes: [id number] DISCH DAY >30min DEXTER MAXWELL NP Mar 25, 2025 13:04
[2025-03-25 13:30] VITALS: BP 97/65; PULSE 86; RESP 86; TEMP 98.4; O2SAT 95
[2025-03-25 13:51] VITALS: BP 93/55; PULSE 83; TEMP 98.6; O2SAT 93
== END 2025-03-25 17:07 | disposition home or self-care (01) | DRG 282 ==
LOC: ER 10:01 → OVERFLOW 19:03 → WEST WING 03-23 22:21
PROVIDERS: ADMIT Nurse Practitioner Acute Care; ATTEND Nurse Practitioner Acute Care
DX: K85.90 Acute pancreatitis without necrosis or infection, unspecified (principal); G92.8 Other toxic encephalopathy; F10.231 Alcohol dependence with withdrawal delirium; K76.6 Portal hypertension; K76.82 Hepatic encephalopathy; K74.60 Unspecified cirrhosis of liver; Z68.32 Body mass index [BMI] 32.0-32.9, adult; E66.9 Obesity, unspecified; E87.6 Hypokalemia; K57.30 Diverticulosis of large intestine without perforation or abscess without bleeding; K76.0 Fatty (change of) liver, not elsewhere classified; Z88.0 Allergy status to penicillin; Z82.49 Family history of ischemic heart disease and other diseases of the circulatory system; Z79.899 Other long term (current) drug therapy
CPT/HCPCS: 36415; 74176; 80048; 80053; 82140; 83690; 83735; 85025; 85610; 85730; G0378; J2405; J2470